=== PATIENT | female | born 1945 | race American Indian/Alaskan Native ===

== ENCOUNTER → 2018-04-26 11:09 | Outpatient (CLI) | payer MEDICARE, MEDICAID, OTHER, SELFPAY ==
[2018-04-26 11:58] LABS: Alanine Aminotransferase 16 IU/L (9-52); Albumin Globulin Ratio 1.3 (1.0-2.8); Alkaline Phosphatase 56 U/L (38-126); Aspartate Aminotransferase 22 IU/L (14-36); BUN Creatinine Ratio 12.5 (6-22); Bilirubin Total 0.6 mg/dL (0.2-1.3); Blood Urea Nitrogen 10 mg/dL (7-17); Calcium 8.9 mg/dL (8.4-10.2); Carbon Dioxide 31 mmol/L (22-32); Chloride 101 mmol/L (98-107); Cholesterol 144 mg/dL (140-199); Estimated Glomerular Filt Rate > 60.0 mL/min (>60); Globulin 3.2 g/dL (1.7-4.1); Glucose 93 mg/dL (80-110); HDL Cholesterol 52 mg/dL (40-60); HEMOLYSIS < 15 (0-50); LDL Cholesterol Calculated 60 mg/dL (<100); Potassium 4.4 mmol/L (3.4-5.1); Sodium 138 mmol/L (137-145); Total Protein 7.2 g/dL (6.3-8.2); Triglycerides 162 mg/dL (35-150)
== END ==
PROVIDERS: Visit Provider Internal Medicine
DX: E78.00 Pure hypercholesterolemia, unspecified (principal); F33.9 Major depressive disorder, recurrent, unspecified
CPT/HCPCS: 36415; 80053; 80061

== ENCOUNTER 2018-05-14 11:28 | Emergency (ER) | payer MEDICARE, MEDICAID, OTHER, SELFPAY ==
--- NOTE | 2018-05-14 11:30 | ED_ITS ---
HPI - SOB/Dyspnea General Chief Complaint: Fall Stated Complaint: back pain, pain with inhalation Time Seen by Provider: 05/14/18 11:30 Source: patient Mode of arrival: ambulatory Limitations: no limitations History of Present Illness 73-year-old female here for evaluation of right sided back rib pain. She states that it started after she tripped over a baby gate in her house landing on her right side. She states she has had pain since then. She states she sees been taking her Percocet at home which has not been helping. Does have pain with palpation and deep inspiration. Related Data Home Medications Medication Instructions Recorded Confirmed acetaminophen [Tylenol Extra PO Q6HP PRN #0 10/24/16 04/12/18 Strength] Previous Rx's Medication Instructions Recorded albuterol sulfate [Ventolin HFA] 0 INH SEE INSTRUCTIONS PRN #1 inh 02/06/17 dicyclomine 20 mg PO QID #120 tab 06/28/17 ondansetron HCl [Zofran] 4 mg PO TIDP PRN #20 tab 01/17/18 trazodone 50 mg tablet 50 mg PO BEDTIME PRN #30 tab 03/13/18 montelukast 10 mg tablet 10 mg PO QDAY #30 tab 03/20/18 sertraline 50 mg tablet 50 mg PO DAILY #30 tab 04/12/18 metoprolol succinate ER 50 mg 50 mg PO QDAY #30 tab 04/19/18 tablet,extended release 24 hr simvastatin 20 mg tablet 20 mg PO QDAY #30 tab 04/19/18 omeprazole 40 mg capsule,delayed 40 mg PO QDAY #30 cap 04/27/18 release hydrocodone 5 mg-acetaminophen 325 1 tab PO QIDP PRN #112 tab 05/07/18 mg tablet lidocaine 1 patch TOP Q12H PRN #1 each 05/14/18 Allergies Allergy/AdvReac Type Severity Reaction Status Date / Time amoxicillin [AMOXICILLIN] Allergy Mild RASH Verified 05/14/18 11:36 codeine [CODEINE] Allergy Mild HEADACHE Verified 05/14/18 11:36 metronidazole [METRONIDAZOLE] Allergy Mild RASH Verified 05/14/18 11:36 morphine [MORPHINE] Allergy Mild NAUSEA Verified 05/14/18 11:36 Penicillins [PENICILLINS] Allergy Mild NAUSEA Verified 05/14/18 11:36 tetracycline [TETRACYCLINE] Allergy Mild RASH Verified 05/14/18 11:36 Review of Systems Constitutional Denies fatigue, Denies fever(s) and Denies headache(s) ENT Ears, Nose, Mouth, and Throat: Denies vertigo, Denies dizziness and Denies headache(s) Cardiovascular Denies chest pain, Denies irregular heart rhythm, Denies leg edema, Denies palpitations and Denies dyspnea Respiratory Denies cough, Reports pain on inspiration and Denies dyspnea Gastrointestinal Gastrointestinal: Denies abdominal pain, Denies diarrhea, Denies nausea and Denies vomiting Genitourinary Denies dysuria Musculoskeletal Comments: Right sided back rib pain Integumentary/Breasts Comments: Scab over her left knee from the fall Neurologic Denies vertigo, Denies dizziness and Denies headache(s) Endocrine Denies fatigue and Denies palpitations Hematologic/Lymphatic Denies easy bleeding and Denies easy bruising [facility] Medical History History of nuclear stress test (Resolved 2008) Social History Smoking Status: Former smoker Comment: Reviewed patient's past medical surgical family and social history Exam Initial Vital Signs Initial Vital Signs: Vital Signs Temperature 96.4 F L 05/14/18 11:33 Pulse Rate 58 L 05/14/18 11:33 Respiratory Rate 14 05/14/18 11:33 Blood Pressure 156/68 H 05/14/18 11:33 Pulse Oximetry 96 05/14/18 11:33 Const General: cooperative, healthy appearing, comfortable, well developed, well groomed and No acute distress Orientation: alert, awake and oriented x3 HENSD Head: normal to inspection, normocephalic and atraumatic Resp Effort & Inspection: normal respiratory effort Auscultation: clear to auscultation bilaterally Cardio Rate: regular rate Rhythm: regular rhythm Pulses: radial pulses present Back/Spine/Pelvis Other: Patient with pinpoint tenderness to palpation right lower ribs midback. Skin Other: Patient with a scab on the anterior portion of her left knee without surrounding erythema Neuro General: alert, awake and oriented x3 Psych Appearance: grossly normal and well kempt Course Orders Ordered: ED Orders 05/14/18 11:38 XR ribs RT min 3V w CXR1V Stat Vital Signs - 8 hr 05/14/18 11:33 05/14/18 12:37 Temperature 96.4 F L 97.6 F Pulse Rate 58 L 46 L Respiratory Rate 14 16 Blood Pressure 156/68 H Blood Pressure [Left Arm] 138/74 H Pulse Oximetry 96 97 MDM - SOB/Dyspnea Imaging Data Rib x-ray: Radiologist's impression: PROCEDURE: XR RIBS RT MIN 3V W CXR 1V INDICATIONS: Right-sided rib pain after fall TECHNIQUE: 2 views of the right ribs were acquired, along with a single view chest. COMPARISON: [facility], , CHEST 1 VIEW, 10/24/2016, 11:14. FINDINGS: Surgical changes and devices: Cholecystectomy clips are seen. Bones and chest wall: No fractures or dislocations. No suspicious bony lesions. Overlying soft tissues appear unremarkable. Lungs and pleura: No pleural effusions or pneumothorax. Lungs appear clear. Mediastinum: Mediastinal contours appear normal. Age-appropriate bony degenerative changes are seen. Heart size is normal. IMPRESSION: No displaced rib fractures are seen. No pneumothorax. Dictated by: Rickey Layton M.D. on 05/14/2018 at 11:45 Approved by: Rickey Layton M.D. on 05/14/2018 at 11:45 ECG Data Attestation: I personally reviewed and interpreted this ECG as follows: Prior ECG tracings: not available for review Interpretation: Sinus bradycardia Ventricular rate of 45 Normal QRS Normal QTC No ST T wave changes [facility] Narrative Medical decision making narrative: No fracture seen on the x-ray however patient clinically has pinpoint tenderness on the posterior inferior ribs after a fall which clinically could be diagnosed as a rib fracture. She currently does have opioid pain medications at home. We discussed the importance of taking big deep cleansing breath. Will send home with a prescription for lidocaine. She was given return precautions. She expressed understanding and agreement with plan. Discharge Plan Departure Patient Disposition: Home, Self-Care Clinical Impression: Fracture of rib Instructions: Rib Fracture Activity Restrictions/Additional Instructions: Make sure you are taking your pain medication like we discussed. Highly recommend that you occasionally take a big deep breath and also cough to make sure you are clearing out your lungs. Use the lidocaine patches as directed. Return to the emergency department for any new symptoms, problems breathing, fevers, or any other worsening symptoms. Prescriptions: New lidocaine 4 % adhesive patch,medicated 1 patch TOP Q12H PRN (Reason: pain) Qty: 1 RF: 0 No Action acetaminophen [Tylenol Extra Strength] 500 mg Tablet PO Q6HP PRNQty: 0 RF: 0 albuterol sulfate [Ventolin HFA] 90 MCG/PUFF HFA aerosol inhaler INH SEE INSTRUCTIONS PRNQty: 1 RF: 11 dicyclomine 20 MG tablet 20 mg PO QID Qty: 120 RF: 11 ondansetron HCl [Zofran] 4 MG tablet 4 mg PO TIDP PRNQty: 20 RF: 1 montelukast [Singulair] 10 mg tablet 10 mg PO QDAY Qty: 30 RF: 5 metoprolol succinate [Toprol XL] 50 mg tablet extended release 24 hr 50 mg PO QDAY Qty: 30 RF: 11 simvastatin 20 mg tablet 20 mg PO QDAY Qty: 30 RF: 11 omeprazole 40 mg capsule,delayed release(DR/EC) 40 mg PO QDAY Qty: 30 RF: 6 sertraline 50 mg tablet 50 mg PO DAILY Qty: 30 RF: 1 hydrocodone-acetaminophen [[place]] 5-325 mg tablet 1 tab PO QIDP PRN (Reason: pain) Qty: 112 RF: 0 trazodone 50 mg tablet 50 mg PO BEDTIME PRN (Reason: insomnia) Qty: 30 RF: 0
[2018-05-14 11:33] VITALS: BP 156/68; PULSE 58; RESP 14; TEMP 35.8; O2SAT 96; BMI 29.2
--- NOTE | 2018-05-14 11:38 | DI.RAD.S_ITS ---
PROCEDURE: XR RIBS RT MIN 3V W CXR 1V INDICATIONS: Right-sided rib pain after fall TECHNIQUE: 2 views of the right ribs were acquired, along with a single view chest. COMPARISON: [facility], , CHEST 1 VIEW, 10/24/2016, 11:14. FINDINGS: Surgical changes and devices: Cholecystectomy clips are seen. Bones and chest wall: No fractures or dislocations. No suspicious bony lesions. Overlying soft tissues appear unremarkable. Lungs and pleura: No pleural effusions or pneumothorax. Lungs appear clear. Mediastinum: Mediastinal contours appear normal. Age-appropriate bony degenerative changes are seen. Heart size is normal. IMPRESSION: No displaced rib fractures are seen. No pneumothorax. Dictated by: Rickey Layton M.D. on 05/14/2018 at 11:45 Approved by: Rickey Layton M.D. on 05/14/2018 at 11:45
[2018-05-14 12:37] VITALS: BP 138/74; PULSE 46; RESP 16; TEMP 36.4; O2SAT 97
== END 2018-05-14 13:20 | disposition home or self-care (01) ==
PROVIDERS: Emergency Provider Emergency Medicine; Family Provider Family Medicine; PCP Family Medicine
DX: S22.39XA Fracture of one rib, unspecified side, initial encounter for closed fracture (principal); W01.0XXA Fall on same level from slipping, tripping and stumbling without subsequent striking against object, initial encounter; R07.1 Chest pain on breathing
CPT/HCPCS: 71101; 93005; 93010; 99282; 99284

== ENCOUNTER → 2018-11-29 12:26 | Outpatient (CLI) | payer MEDICARE, MEDICAID, OTHER, SELFPAY ==
--- NOTE | 2018-11-29 | DI.RAD.S_ITS ---
PROCEDURE: XR CHEST 2V INDICATIONS: RIB PAIN TECHNIQUE: 2 views of the chest were acquired. COMPARISON: [facility], , CHEST 1 VIEW, 10/24/2016, 11:14. FINDINGS: Surgical changes and devices: None. Lungs and pleura: Lungs are clear. No pleural effusions or pneumothorax. Mediastinum: Mediastinal contours are normal. Heart size is normal. Bones and chest wall: Probable nondisplaced left sixth rib fracture. Soft tissues appear unremarkable. IMPRESSION: 1. Probable nondisplaced left sixth rib fracture. 2. No acute cardiopulmonary disease. Dictated by: Sandeep King M.D. on 11/29/2018 at 14:37 Approved by: Sandeep King M.D. on 11/29/2018 at 14:40
== END ==
PROVIDERS: PCP Physician Assistant; Visit Provider Physician Assistant
DX: R07.82 Intercostal pain (principal)
CPT/HCPCS: 71046

== ENCOUNTER 2022-12-05 22:28 | Emergency (ER) | payer OTHER, MEDICAID, SELFPAY ==
--- NOTE | 2022-12-05 22:45 | DI.RAD.S_ITS ---
PROCEDURE: XR CHEST 2V INDICATIONS: cough TECHNIQUE: 2 views of the chest were acquired. COMPARISON: [facility], [place], XR CHEST 2V, 11/29/2018, 0:00. [facility], [place], CHEST 1 VIEW, 10/24/2016, 11:14. FINDINGS: Surgical changes and devices: None. Lungs and pleura: Lungs are clear. No pleural effusions or pneumothorax. Mediastinum: Mediastinal contours are normal. Heart size is normal. Bones and chest wall: No suspicious bony abnormalities. Soft tissues appear unremarkable. IMPRESSION: Normal for age, source of current cough symptoms is not seen. Dictated by: Noé Flores M.D. on 12/05/2022 at 23:46 Approved by: Noé Flores M.D. on 12/05/2022 at 23:47
[2022-12-05 22:47] VITALS: BP 140/69; PULSE 60; RESP 17; TEMP 36.6; O2SAT 99; BMI 28.6
--- NOTE | 2022-12-05 22:49 | PC.NURSE ---
Pt had 1000 mg of tylenol at 1930.
--- NOTE | 2022-12-05 22:59 | ED.URI ---
HPI - URI/Sore Throat General Chief Complaint: Upper Respiratory Symptoms Stated Complaint: weak/bp high Time Seen by Provider: 12/05/22 22:53 Source: patient and family Mode of arrival: Ambulatory History of Present Illness HPI Narrative: Patient is partially COVID vaccinated. Has history of pneumonia and bronchitis in the past. No prior history of asthma or COPD. Does smoke marijuana nearly daily. Does have positive sick contacts, grandson has been having same symptoms as well as great granddaughter. Patient has had cough cold congestion fever chills productive green cough for the past 6 days. Blood pressure at home 160/80. Has improved 140/69. Does take blood pressure medication. No heart attack strokes or diabetes. Patient in no distress. Speaking full sentences. No chest pain. Patient been on losartan for many years, only takes once a day in the morning. Patient does smoke marijuana nearly daily Related Data Home Medications Medication Instructions Recorded Confirmed baclofen 10 mg tablet 10 mg PO DAILY 12/05/22 12/05/22 duloxetine 20 mg capsule,delayed 40 mg PO BID 12/05/22 12/05/22 release losartan 50 mg tablet 50 mg PO DAILY 12/05/22 12/05/22 metoclopramide HCl 10 mg tablet 10 mg PO DAILY 12/05/22 12/05/22 Previous Rx's Medication Instructions Recorded dicyclomine 20 mg tablet 20 mg PO QID #120 tabs 06/28/17 Allergies Allergy/AdvReac Type Severity Reaction Status Date / Time amoxicillin [AMOXICILLIN] Allergy Mild RASH Verified 12/05/22 22:50 codeine [CODEINE] Allergy Mild HEADACHE Verified 12/05/22 22:50 metronidazole [METRONIDAZOLE] Allergy Mild RASH Verified 12/05/22 22:50 morphine [MORPHINE] Allergy Mild NAUSEA Verified 12/05/22 22:50 Penicillins [PENICILLINS] Allergy Mild NAUSEA Verified 12/05/22 22:50 tetracycline [TETRACYCLINE] Allergy Mild RASH Verified 12/05/22 22:50 Review of Systems Review of Systems Narrative: GENERAL: Positive chills, fatigue, malaise, fever, negative sweats. HEENT: negative sinus pain, ear pain, sore throat RESPIRATORY: negative dyspnea, positive cough CARDIOVASCULAR: negative chest pain, palpitations GASTROINTESTINAL: negative nausea, vomiting, abdominal pain : negative dysuria, frequency, hematuria MUSCULOSKELETAL: negative muscle or bony pain SKIN: negative rash, skin lesions NEUROLOGIC: negative weakness, numbness ROS Unobtainable: All systems reviewed & are unremarkable except as noted in HPI and below Patient History Medical History (Updated 12/06/22 @ 01:23 by Chapo Shipley MD) History of nuclear stress test (2008) Social History Smoking Status: Former smoker Smoking Status: Former smoker alcohol intake frequency: other Substance Use Type: marijuana Exam Narrative Exam Narrative: GENERAL: in no distress, not toxic not dyspneic HEAD: Normocephalic. EYES: Pupils equal round ENT: Mucous membranes moist. NECK: Trachea midline. CARDIOVASCULAR: Regular rate and rhythm without murmurs RESPIRATORY: Clear to auscultation. Breath sounds equal bilaterally. No wheezes, rales, or rhonchi. Speaking full sentences GASTROINTESTINAL: Abdomen soft, non-tender EXTREMITIES: No gross deformities. BACK: No flank tenderness. NEURO: AOx4. SKIN: Warm and dry PSYCH: Not anxious, is cooperative Initial Vital Signs Initial Vital Signs: Vital Signs Temperature 98 F 12/05/22 22:47 Pulse Rate 60 12/05/22 22:47 Respiratory Rate 17 12/05/22 22:47 Blood Pressure 140/69 12/05/22 22:47 Pulse Oximetry 99 12/05/22 22:47 Oxygen Delivery Method 12/05/22 22:47 Course Orders Ordered: ED Orders 12/05/22 22:45 Chest [XR chest 2V] Stat 12/05/22 22:46 EKG-12 Lead Stat 12/05/22 23:00 Covid-19 + FLU A/B + RSV - PCR Stat 12/05/22 23:10 BNP [NT-proBNP (BNP-Adult 18+)] Stat CBC Auto Diff [Complete Blood Count AUTO DIFF] Stat CMP [Comprehensive Metabolic Panel] Stat Lactate (Lactic Acid) Stat Procalcitonin Stat Prothrombin Time INR Stat Troponin & CK Cardiac Panel Stat Discontinued Medications Losartan Potassium (Losartan 50 Mg Tablet) 50 mg PO NOW ONE Stop: 12/06/22 01:08 Last Admin: 12/06/22 01:23 Dose: 50 mg Documented By: AP Vital Signs Vital signs: Vital Signs - 8 hr 12/05/22 22:47 12/05/22 23:25 12/05/22 23:30 Temperature 98 F Pulse Rate 60 58 L 59 L Respiratory Rate 17 24 Blood Pressure 140/69 Pulse Oximetry 99 97 97 Oxygen Delivery Method Room Air 12/05/22 23:36 12/05/22 23:36 12/06/22 00:00 Temperature Pulse Rate 59 L 60 Respiratory Rate 23 21 Blood Pressure 186/77 H Pulse Oximetry 96 97 Oxygen Delivery Method 12/06/22 00:30 12/06/22 01:00 12/06/22 01:09 Temperature Pulse Rate 64 63 62 Respiratory Rate 22 23 23 Blood Pressure Pulse Oximetry 97 99 97 Oxygen Delivery Method 12/06/22 01:09 12/06/22 01:30 12/06/22 01:30 Temperature Pulse Rate 61 Respiratory Rate 22 Blood Pressure 172/74 H 157/74 H Pulse Oximetry 97 Oxygen Delivery Method 12/06/22 02:00 12/06/22 02:01 12/06/22 02:01 Temperature Pulse Rate 62 63 Respiratory Rate 22 22 Blood Pressure 158/69 H Pulse Oximetry 96 97 Oxygen Delivery Method MDM - URI/Sore Throat Lab Data 12/05/22 23:10 12/05/22 23:10 Labs: Lab Results 12/05/22 12/05/22 12/05/22 Range/Units 23:00 23:10 23:10 WBC 6.9 (4.5-11.0) X10^3/uL RBC 4.26 (4.0-5.2) X10^6/uL Hgb 12.7 (12.0-16.0) g/dL Hct 37.2 (36-46) % MCV 87.4 (80-100) fL MCH 29.8 (26-34) PG MCHC 34.0 (30-36) % RDW 13.8 (11.6-14.8) % Plt Count 383 (150-400) X10^3/uL Neut % (Auto) 51.4 (50-75) % Lymph % (Auto) 38.1 (25-40) % [place] % (Auto) 8.9 (3-14) % Eos % (Auto) 1.0 L (2-4) % Baso % (Auto) 0.6 (0-2) % Neut # (Auto) 3600 (2540-8544) /uL Lymph # (Auto) 2600 (9263-2051) /uL [place] # (Auto) 600 (0-900) /uL Eos # (Auto) 100 (0-450) /uL Baso # (Auto) 0 (0-100) /uL PT (10.1-12.7) SECONDS INR (0.9-1.3) Sodium 133 L (137-145) mmol/L Potassium 3.7 (3.4-5.1) mmol/L Chloride 102 (98-107) mmol/L Carbon Dioxide 23 (22-32) mmol/L BUN 14 (7-17) mg/dL Creatinine 1.03 (0.52-1.04) mg/dL Estimated GFR 57 L (>60) mL/min BUN/Creatinine Ratio 13.6 (6-22) Glucose 95 (80-110) mg/dL Lactate (0.7-2.1) mmol/L Calcium 8.5 (8.4-10.2) mg/dL Total Bilirubin 0.4 (0.2-1.3) mg/dL AST 18 (14-36) IU/L ALT 14 (<35) IU/L Alkaline Phosphatase 66 (38-126) U/L Total Creatine Kinase 62 (30-135) U/L CK-MB (CK-2) TNP CK-MB (CK-2) Rel Index TNP Troponin I 0.019 (0.01-0.034) ng/mL NT-Pro-B Natriuret Pep 309 (<450) pg/mL Total Protein 7.0 (6.3-8.2) g/dL Albumin 4.0 (3.5-5.0) g/dL Globulin 3.0 (1.7-4.1) g/dL Albumin/Globulin Ratio 1.3 (1.0-2.8) Procalcitonin 0.04 (<0.5) ng/mL SARS-CoV-2 (PCR) Negative (Negative) Influenza A (RT-PCR) Flu a negative (NEGATIVE) Influenza B (RT-PCR) Flu b negative (NEGATIVE) RSV (PCR) Negative (Negative) 12/05/22 12/05/22 Range/Units 23:10 23:10 WBC (4.5-11.0) X10^3/uL RBC (4.0-5.2) X10^6/uL Hgb (12.0-16.0) g/dL Hct (36-46) % MCV (80-100) fL MCH (26-34) PG MCHC (30-36) % RDW (11.6-14.8) % Plt Count (150-400) X10^3/uL Neut % (Auto) (50-75) % Lymph % (Auto) (25-40) % [place] % (Auto) (3-14) % Eos % (Auto) (2-4) % Baso % (Auto) (0-2) % Neut # (Auto) (8700-7341) /uL Lymph # (Auto) (1656-8134) /uL [place] # (Auto) (0-900) /uL Eos # (Auto) (0-450) /uL Baso # (Auto) (0-100) /uL PT 12.3 (10.1-12.7) SECONDS INR 1.1 (0.9-1.3) Sodium (137-145) mmol/L Potassium (3.4-5.1) mmol/L Chloride (98-107) mmol/L Carbon Dioxide (22-32) mmol/L BUN (7-17) mg/dL Creatinine (0.52-1.04) mg/dL Estimated GFR (>60) mL/min BUN/Creatinine Ratio (6-22) Glucose (80-110) mg/dL Lactate 0.7 (0.7-2.1) mmol/L Calcium (8.4-10.2) mg/dL Total Bilirubin (0.2-1.3) mg/dL AST (14-36) IU/L ALT (<35) IU/L Alkaline Phosphatase (38-126) U/L Total Creatine Kinase (30-135) U/L CK-MB (CK-2) CK-MB (CK-2) Rel Index Troponin I (0.01-0.034) ng/mL NT-Pro-B Natriuret Pep (<450) pg/mL Total Protein (6.3-8.2) g/dL Albumin (3.5-5.0) g/dL Globulin (1.7-4.1) g/dL Albumin/Globulin Ratio (1.0-2.8) Procalcitonin (<0.5) ng/mL SARS-CoV-2 (PCR) (Negative) Influenza A (RT-PCR) (NEGATIVE) Influenza B (RT-PCR) (NEGATIVE) RSV (PCR) (Negative) [facility] Narrative Medical decision making narrative: Patient is partially COVID vaccinated. Has history of pneumonia and bronchitis in the past. No prior history of asthma or COPD. Does smoke marijuana nearly daily. Does have positive sick contacts, grandson has been having same symptoms as well as great granddaughter. Patient has had cough cold congestion fever chills productive green cough for the past 6 days. Blood pressure at home 160/80. Has improved 140/69. Does take blood pressure medication. No heart attack strokes or diabetes. Patient in no distress. Speaking full sentences. No chest pain. Patient been on losartan for many years, only takes once a day in the morning. Patient does smoke marijuana nearly daily After history and exam CBC CMP EKG procalcitonin lactic acid troponin BNP chest x-ray viral swab ordered [facility] CC: Cough cold congestion fever chills Complicating co-morbidities: Positive sick contacts Data collected from: Patient and grandson and family Medical records reviewed: No previous visits here for URI Differential considered: Includes but not limited to pneumonia bronchitis asthma exacerbation hypertension Exam documented above, pertinent findings include: Clear lung sounds speaking full sentences Lab Test results independently reviewed as above. Pertinent findings: WBC 6.9 sodium 133, viral swab negative Independently reviewed EKG as above sinus rhythm rate [address] elevation or depression Imaging studies independently reviewed: Chest x-ray no acute process Treatments: Losartan 50 mg Re-evaluations: 2:21 a.m.. Blood pressure has improved 164/74. Blood pressure at 2247 140/69. Blood pressure at 201 am 158/69. Patient resting comfortably. No dyspnea no coughing feeling much better. Reviewed results with her. She does understand to take losartan twice a day. Follow up with primary care this week for re-evaluation of blood pressure. Understands no antibiotics for bronchitis. Encouraged her to stop smoking marijuana. Discussion: Appropriate for discharge home. Exam and laboratory studies and imaging and EKG are reassuring. Patient has been on losartan once in the morning for many years. Has not had any changes in her medication for blood pressure. Denies any chest pain. No dyspnea. Return precautions reviewed with her. At this time no antibiotics indicated. Clinically is bronchitis. Blood pressure medication given here and with improvement. Patient will likely need her blood pressure medication twice a day. Diagnosis: Bronchitis/high blood pressure Discharge Plan Departure Patient Disposition: Home Clinical Impression: Bronchitis, Hypertension Instructions: DI for High Blood Pressure, DI for Acute Bronchitis Activity Restrictions/Additional Instructions: Please take your blood pressure medication once in the morning and once at night. Please call family doctor today for office re-evaluation this week for your blood pressure. Please do not smoke. This can cause bronchitis. At this time no antibiotics indicated. Return if worse if any questions or concerns or any trouble breathing. Prescriptions: No Action dicyclomine 20 MG tablet 20 mg PO QID Qty: 120 11RF losartan 50 mg tablet 50 mg PO DAILY baclofen 10 mg tablet 10 mg PO DAILY metoclopramide HCl 10 mg tablet 10 mg PO DAILY duloxetine 20 mg capsule,delayed release(DR/EC) 40 mg PO BID Referrals: Michelle Hooker PA-C [Primary Care Provider] - Stand Alone Forms: Patient Portal/API
[2022-12-05 23:20] LABS: Add Manual Diff / Slide Review NO; Basophils Absolute Auto 0 /uL (0-100); Basophils Percent Auto 0.6 % (0-2); Eosinophils Absolute Auto 100 /uL (0-450); Hematocrit 37.2 % (36-46); Hemoglobin 12.7 g/dL (12.0-16.0); Lymphocytes Absolute Auto 2600 /uL (1100-4500); Lymphocytes Percent Auto 38.1 % (25-40); Mean Corpuscular Hemoglobin 29.8 PG (26-34); Mean Corpuscular Volume 87.4 fL (80-100); Monocytes Absolute Auto 600 /uL (0-900); Monocytes Percent Auto 8.9 % (3-14); Neutrophils Absolute Auto 3600 /uL (1500-7000); Neutrophils Percent Auto 51.4 % (50-75); Platelet Count 383 X10^3/uL (150-400); Red Blood Cell Count 4.26 X10^6/uL (4.0-5.2); Red Cell Distribution Width 13.8 % (11.6-14.8); White Blood Cell Count 6.9 X10^3/uL (4.5-11.0)
[2022-12-05 23:25] VITALS: PULSE 58; O2SAT 97
[2022-12-05 23:27] LABS: INR 1.1 (0.9-1.3); Prothrombin Time 12.3 SECONDS (10.1-12.7)
[2022-12-05 23:30] VITALS: PULSE 59; RESP 24; O2SAT 97
[2022-12-05 23:33] LABS: Lactate (Lactic Acid) 0.7 mmol/L (0.7-2.1)
[2022-12-05 23:34] LABS: Alanine Aminotransferase 14 IU/L (<35); Albumin Globulin Ratio 1.3 (1.0-2.8); Alkaline Phosphatase 66 U/L (38-126); Aspartate Aminotransferase 18 IU/L (14-36); BUN Creatinine Ratio 13.6 (6-22); Bilirubin Total 0.4 mg/dL (0.2-1.3); Blood Urea Nitrogen 14 mg/dL (7-17); Calcium 8.5 mg/dL (8.4-10.2); Carbon Dioxide 23 mmol/L (22-32); Chloride 102 mmol/L (98-107); Creatine Kinase 62 U/L (30-135); Estimated Glomerular Filt Rate 57 mL/min (>60); Glucose 95 mg/dL (80-110); HEMOLYSIS < 15 (0-50); Potassium 3.7 mmol/L (3.4-5.1); Sodium 133 mmol/L (137-145)
[2022-12-05 23:36] VITALS: BP 186/77; PULSE 59; RESP 23; O2SAT 96
[2022-12-05 23:41] LABS: Influenza A - CEPHEID Flu A NEGATIVE (NEGATIVE); Influenza B - CEPHEID Flu B NEGATIVE (NEGATIVE); Respiratory Syncytial Virus Negative (Negative)
[2022-12-05 23:44] LABS: COVID-19 CEPHEID 4-PLEX PCR Negative (Negative)
[2022-12-05 23:46] LABS: NT-proBNP (BNP-Adult 18+) 309 pg/mL (<450); Troponin I 0.019 ng/mL (0.01-0.034)
[2022-12-05 23:50] LABS: Procalcitonin 0.04 ng/mL (<0.5)
[2022-12-06] VITALS (7 sets, daily range): BP systolic 157–172; BP diastolic 69–74; PULSE 60–64; RESP 21–23; O2SAT 96–99
[2022-12-06] MEDS: LOSARTAN 50 MG TABLET PO (01:23)
== END 2022-12-06 02:31 | disposition home or self-care (01) ==
PROVIDERS: Emergency Provider Emergency Medicine; PCP Physician Assistant
DX: J20.9 Acute bronchitis, unspecified (principal); I10 Essential (primary) hypertension; R07.9 Chest pain, unspecified; Z20.822 Contact with and (suspected) exposure to COVID-19
CPT/HCPCS: 0241U; 36415; 71046; 80053; 82550; 83605; 83880; 84145; 84484; 85025; 85610; 93005; 99283; 99284

== ENCOUNTER 2023-09-13 14:01 | Emergency (ER) | payer OTHER, MEDICAID, SELFPAY ==
[2023-09-13 14:14] VITALS: BP 186/79; PULSE 64; RESP 30; TEMP 36.9; O2SAT 99; BMI 27.8
[2023-09-13 14:30] VITALS: BP 167/79; PULSE 77; RESP 27; O2SAT 98
--- NOTE | 2023-09-13 14:30 | DI.RAD.S_ITS ---
PROCEDURE: XR CHEST 1V INDICATIONS: dyspnea TECHNIQUE: One view of the chest was acquired. COMPARISON: [facility], CR, XR CHEST 2V, 12/05/2022, 22:49. FINDINGS: Surgical changes and devices: None. Lungs and pleura: Patchy airspace opacities are present at the bilateral lung bases and appear slightly more confluent on the right than on the left. Mediastinum: Mediastinal contours appear normal. Heart size is normal. Bones and chest wall: No suspicious bony lesions. Overlying soft tissues appear unremarkable. IMPRESSION: Patchy bibasilar airspace opacities suspicious for aspiration/infection. Short interval followup is recommended with resolution of the patient's symptoms to ensure there is no underlying pulmonary pathology. Dictated by: Bailey Forrest M.D. on 09/13/2023 at 16:00 Approved by: Bailey Forrest M.D. on 09/13/2023 at 16:01
--- NOTE | 2023-09-13 14:51 | ED.URI ---
HPI - URI/Sore Throat General Chief Complaint: Upper Respiratory Symptoms Stated Complaint: Weak nausea Time Seen by Provider: 09/13/23 14:05 Source: patient and EMS Mode of arrival: EMS History of Present Illness HPI Narrative: 78-year-old female presents by EMS from home for cough, shortness of breath, body pain. Patient states she has felt poorly for the last 2 days. Patient was placed on 2 L of nasal cannula for comfort. Related Data Home Medications Medication Instructions Recorded Confirmed baclofen 10 mg tablet 10 mg PO DAILY 12/05/22 12/05/22 duloxetine 20 mg capsule,delayed 40 mg PO BID 12/05/22 12/05/22 release losartan 50 mg tablet 50 mg PO DAILY 12/05/22 12/05/22 metoclopramide HCl 10 mg tablet 10 mg PO DAILY 12/05/22 12/05/22 Previous Rx's Medication Instructions Recorded dicyclomine 20 mg tablet 20 mg PO QID #120 tabs 06/28/17 oseltamivir 75 mg capsule (Tamiflu) 75 mg PO Q12H 5 days #10 caps 09/13/23 Allergies Allergy/AdvReac Type Severity Reaction Status Date / Time amoxicillin [AMOXICILLIN] Allergy Mild RASH Verified 12/05/22 22:50 codeine [CODEINE] Allergy Mild HEADACHE Verified 12/05/22 22:50 metronidazole [METRONIDAZOLE] Allergy Mild RASH Verified 12/05/22 22:50 morphine [MORPHINE] Allergy Mild NAUSEA Verified 12/05/22 22:50 Penicillins [PENICILLINS] Allergy Mild NAUSEA Verified 12/05/22 22:50 tetracycline [TETRACYCLINE] Allergy Mild RASH Verified 12/05/22 22:50 Review of Systems Review of Systems Narrative: Negative except as noted above Patient History Medical History (Updated 09/13/23 @ 16:52 by Melinda Ochoa MD) History of nuclear stress test (2008) Social History Smoking Status: Former smoker Smoking Status: Former smoker alcohol intake frequency: other Substance Use Type: marijuana Exam Initial Vital Signs Initial Vital Signs: Vital Signs Temperature 98.4 F 09/13/23 14:14 Pulse Rate 64 09/13/23 14:14 Respiratory Rate 30 H 09/13/23 14:14 Blood Pressure 186/79 H 09/13/23 14:14 Pulse Oximetry 99 09/13/23 14:14 Oxygen Delivery Method Nasal Cannula 09/13/23 14:14 Oxygen Flow Rate 1.5 09/13/23 14:14 Const: Awake, alert, ill-appearing, nontoxic Eyes: PERRL, EOMI, conjunctiva normal ENT: Atraumatic, dentition normal, mucous membranes moist Cardiac: regular rate, regular rhythm RESP: unlabored, clear bilaterally, no wheezing GI: Atraumatic, soft, nontender, nondistended, no rebound, no guarding MSK: Atraumatic, full range of motion, pulses equal Skin: Warm, Dry, intact, no rashes Neuro: AO x3, CN II-XII grossly intact, moves all extremities Psych: affect normal, mood normal, not suicidal, not homicidal Course Course Course Narrative: Nontoxic appearing patient presenting for body aches, cough, shortness of breath for the last several days. Patient is on 2 L nasal cannula, however this is for comfort, when placed on room air patient's saturations are greater than 95%. Laboratory work and imaging to be obtained. Orders Ordered: Discontinued Medications Sodium Chloride (Normal Saline 0.9%) 1,000 mls @ 1,000 mls/hr IV BOLUS ONE Stop: 09/13/23 16:27 Last Infusion: 09/13/23 16:45 Dose: Infused Documented By: Admin: 09/13/23 15:34 Dose: 1,000 mls/hr Documented By: KATY Ondansetron HCl (Ondansetron 4 Mg/2 Ml Inj) 4 mg IV NOW ONE Stop: 09/13/23 15:28 Last Admin: 09/13/23 15:34 Dose: 4 mg Documented By: KATY Reevaluation(s) Reevaluation #1: Laboratory work is reviewed. Mild elevation of BNP, nonspecific. Chest x-ray shows possible bilateral patchy airspace opacities. Patient has no elevated white blood cell count, negative procalcitonin. She is positive however for influenza A. This is likely viral pneumonia and would not benefit from antibiotics. Patient informed of lab and imaging findings. Tamiflu sent to pharmacy as she is within the window for treatment. Counseled on supportive measures and ED return precautions discussed at bedside. Vital Signs Vital signs: Vital Signs - 8 hr 09/13/23 14:14 09/13/23 14:30 09/13/23 15:00 Temperature 98.4 F Pulse Rate 64 77 66 Respiratory Rate 30 H 27 H 25 H Blood Pressure 186/79 H 167/79 H 154/73 H Pulse Oximetry 99 98 99 Oxygen Delivery Method Nasal Cannula Nasal Cannula Nasal Cannula Oxygen Flow Rate 1.5 1.5 1.5 09/13/23 16:11 09/13/23 16:12 Temperature Pulse Rate 79 65 Respiratory Rate 31 H 26 H Blood Pressure 133/82 145/66 H Pulse Oximetry 97 98 Oxygen Delivery Method Nasal Cannula Oxygen Flow Rate 1.5 0.5 MDM - URI/Sore Throat Lab Data 09/13/23 15:06 09/13/23 15:06 Labs: Lab Results 09/13/23 09/13/23 Range/Units 14:58 15:06 WBC 7.3 (4.5-11.0) X10^3/uL RBC 4.40 (4.0-5.2) X10^6/uL Hgb 13.3 (12.0-16.0) g/dL Hct 38.7 (36-46) % MCV 88.0 (80-100) fL MCH 30.3 (26-34) PG MCHC 34.5 (30-36) % RDW 14.3 (11.6-14.8) % Plt Count 306 (150-400) X10^3/uL Neut % (Auto) 78.8 H (50-75) % Lymph % (Auto) 11.5 L (25-40) % Reagan % (Auto) 9.1 (3-14) % Eos % (Auto) 0.1 L (2-4) % Baso % (Auto) 0.5 (0-2) % Neut # (Auto) 5800 (6139-3367) /uL Lymph # (Auto) 800 L (3151-7361) /uL Reagan # (Auto) 700 (0-900) /uL Eos # (Auto) 0 (0-450) /uL Baso # (Auto) 0 (0-100) /uL Sodium 130 L (137-145) mmol/L Potassium 3.8 (3.4-5.1) mmol/L Chloride 100 (98-107) mmol/L Carbon Dioxide 22 (22-32) mmol/L BUN 11 (7-17) mg/dL Creatinine 0.81 (0.52-1.04) mg/dL Estimated GFR > 60 (>60) mL/min BUN/Creatinine Ratio 13.6 (6-22) Glucose 116 H (80-110) mg/dL Calcium 8.7 (8.4-10.2) mg/dL Total Bilirubin 0.7 (0.2-1.3) mg/dL AST 26 (14-36) IU/L ALT 14 (<35) IU/L Alkaline Phosphatase 66 (38-126) U/L Total Creatine Kinase 156 H (30-135) U/L Troponin I < 0.012 (0.01-0.034) ng/mL NT-Pro-B Natriuret Pep 1250 H (<450) pg/mL Total Protein 6.8 (6.3-8.2) g/dL Albumin 3.8 (3.5-5.0) g/dL Globulin 3.0 (1.7-4.1) g/dL Albumin/Globulin Ratio 1.3 (1.0-2.8) Lipase 186 (23-300) U/L Procalcitonin 0.06 (<0.5) ng/mL SARS-CoV-2 (PCR) Negative (Negative) Influenza A (RT-PCR) Flu a positive H (NEGATIVE) Influenza B (RT-PCR) Flu b negative (NEGATIVE) RSV (PCR) Negative (Negative) Discharge Plan Departure Patient Disposition: Home Clinical Impression: Influenza, Cough, Other viral pneumonia Instructions: DI for Influenza -- Adult Prescriptions: New oseltamivir [Tamiflu] 75 mg capsule 75 mg PO Q12H 5 Days Qty: 10 0RF No Action dicyclomine 20 MG tablet 20 mg PO QID Qty: 120 11RF losartan 50 mg tablet 50 mg PO DAILY baclofen 10 mg tablet 10 mg PO DAILY metoclopramide HCl 10 mg tablet 10 mg PO DAILY duloxetine 20 mg capsule,delayed release(DR/EC) 40 mg PO BID Referrals: Michelle Hooker PA-C [Primary Care Provider] - Stand Alone Forms: Patient Portal/API
[2023-09-13 15:00] VITALS: BP 154/73; PULSE 66; RESP 25; O2SAT 99
[2023-09-13 15:12] LABS: Add Manual Diff / Slide Review NO; Basophils Absolute Auto 0 /uL (0-100); Basophils Percent Auto 0.5 % (0-2); Eosinophils Absolute Auto 0 /uL (0-450); Eosinophils Percent Auto 0.1 % (2-4); Hematocrit 38.7 % (36-46); Hemoglobin 13.3 g/dL (12.0-16.0); Lymphocytes Absolute Auto 800 /uL (1100-4500); Lymphocytes Percent Auto 11.5 % (25-40); Mean Corpuscular HGB Conc 34.5 % (30-36); Mean Corpuscular Hemoglobin 30.3 PG (26-34); Monocytes Absolute Auto 700 /uL (0-900); Monocytes Percent Auto 9.1 % (3-14); Neutrophils Absolute Auto 5800 /uL (1500-7000); Neutrophils Percent Auto 78.8 % (50-75); Platelet Count 306 X10^3/uL (150-400); Red Cell Distribution Width 14.3 % (11.6-14.8); White Blood Cell Count 7.3 X10^3/uL (4.5-11.0)
[2023-09-13] MEDS: SODIUM CHLORIDE 0.9% 1,000 ML 1000 ML IV (15:34)
[2023-09-13] MEDS: ONDANSETRON 4 MG/2 ML INJ IV (15:34)
[2023-09-13 15:36] LABS: Alanine Aminotransferase 14 IU/L (<35); Albumin 3.8 g/dL (3.5-5.0); Albumin Globulin Ratio 1.3 (1.0-2.8); Alkaline Phosphatase 66 U/L (38-126); Aspartate Aminotransferase 26 IU/L (14-36); BUN Creatinine Ratio 13.6 (6-22); Bilirubin Total 0.7 mg/dL (0.2-1.3); Blood Urea Nitrogen 11 mg/dL (7-17); Calcium 8.7 mg/dL (8.4-10.2); Carbon Dioxide 22 mmol/L (22-32); Chloride 100 mmol/L (98-107); Creatine Kinase 156 U/L (30-135); Estimated Glomerular Filt Rate > 60 mL/min (>60); Glucose 116 mg/dL (80-110); HEMOLYSIS < 15 (0-50); Lipase 186 U/L (23-300); Potassium 3.8 mmol/L (3.4-5.1); Sodium 130 mmol/L (137-145); Total Protein 6.8 g/dL (6.3-8.2)
[2023-09-13 15:46] LABS: Influenza A - CEPHEID Flu A POSITIVE (NEGATIVE); Influenza B - CEPHEID Flu B NEGATIVE (NEGATIVE); Respiratory Syncytial Virus Negative (Negative)
[2023-09-13 15:47] LABS: COVID-19 CEPHEID 4-PLEX PCR Negative (Negative)
[2023-09-13 15:48] LABS: NT-proBNP (BNP-Adult 18+) 1250 pg/mL (<450); Troponin I < 0.012 ng/mL (0.01-0.034)
[2023-09-13 16:11] VITALS: BP 133/82; PULSE 79; RESP 31; O2SAT 97
[2023-09-13 16:12] VITALS: BP 145/66; PULSE 65; RESP 26; O2SAT 98
[2023-09-13 16:34] LABS: Procalcitonin 0.06 ng/mL (<0.5)
[2023-09-13 16:57] VITALS: BP 156/69; PULSE 68; RESP 29; O2SAT 98
== END 2023-09-13 17:04 | disposition home or self-care (01) ==
PROVIDERS: Emergency Provider Emergency Medicine; PCP Physician Assistant
DX: J09.X2 Influenza due to identified novel influenza A virus with other respiratory manifestations (principal); J12.89 Other viral pneumonia; R05.9 Cough, unspecified
CPT/HCPCS: 0241U; 36415; 71045; 80053; 82550; 83690; 83880; 84145; 84484; 85025; 96361; 96374; 99284; 99285; J2405

== ENCOUNTER 2025-01-06 13:43 | Observation (INO) | payer MEDICARE, MEDICAID, SELFPAY ==
[2025-01-06] VITALS (28 sets, daily range): BP systolic 102–186; BP diastolic 50–96; PULSE 69–97; RESP 16–39; TEMP 36.7–36.8; O2SAT 97–100; BMI 25.9
--- NOTE | 2025-01-06 13:49 | DI.RAD.S_ITS ---
PROCEDURE: XR CHEST 1V INDICATIONS: Shortness of breath TECHNIQUE: One view of the chest was acquired. COMPARISON: [facility], SARITA, XR CHEST 1V, 09/13/2023, 14:49. [facility], CR, XR CHEST 2V, 12/05/2022, 22:49. FINDINGS: Surgical changes and devices: None. Lungs and pleura: Lungs are clear. No pleural effusions or pneumothorax. Mediastinum: Mediastinal contours appear normal. Heart size is normal. Bones and chest wall: No suspicious bony lesions. Overlying soft tissues appear unremarkable. IMPRESSION: No acute cardiopulmonary abnormality is seen. Dictated by: New Morales M.D. on 01/06/2025 at 14:39 Approved by: New Morales M.D. on 01/06/2025 at 14:39
--- NOTE | 2025-01-06 13:49 | EKG_ITS ---
[facility] [address] [place] [address] Test Date: 2025-01-06 Pat Name: Matilde Thakkar Department: Room: Gender: Female Professor Of Art: MARI : 1945 Requested By: Order Number: [id number] Reading MD: Graham Giraldo MD Measurements Intervals [place] Rate: 77 P: -26 SD: 108 QRS: 12 QRSD: 74 T: 13 QT: 382 QTc: 432 Interpretive Statements Sinus rhythm with marked sinus arrhythmia with short SD ST & T wave abnormality, consider inferior ischemia (baseline artifact may be responsible) Electronically Signed On 01-07-2025 7:43:14 PDT by Graham Giraldo MD
[2025-01-06 14:27] LABS: Add Manual Diff / Slide Review NO; Basophils Absolute Auto 0 /uL (0-100); Basophils Percent Auto 0.2 % (0-2); Eosinophils Absolute Auto 0 /uL (0-450); Eosinophils Percent Auto 0.2 % (2-4); Hematocrit 38.8 % (36-46); Hemoglobin 13.5 g/dL (12.0-16.0); Lymphocytes Absolute Auto 400 /uL (1100-4500); Lymphocytes Percent Auto 5.8 % (25-40); Mean Corpuscular HGB Conc 34.9 % (30-36); Monocytes Absolute Auto 300 /uL (0-900); Neutrophils Absolute Auto 5600 /uL (1500-7000); Neutrophils Percent Auto 88.8 % (50-75); Platelet Count 522 X10^3/uL (150-400); Red Blood Cell Count 4.51 X10^6/uL (4.0-5.2); White Blood Cell Count 6.3 X10^3/uL (4.5-11.0)
[2025-01-06 14:28] LABS: INR 1.1 (0.9-1.3); Prothrombin Time 12.3 SECONDS (9.4-12.5)
[2025-01-06 14:33] LABS: Alanine Aminotransferase 25 IU/L (<35); Albumin 3.8 g/dL (3.5-5.0); Albumin Globulin Ratio 1.1 (1.0-2.8); Alkaline Phosphatase 111 U/L (38-126); Aspartate Aminotransferase 51 IU/L (14-36); BUN Creatinine Ratio 12.3 (6-22); Bilirubin Total 0.9 mg/dL (0.2-1.3); Blood Urea Nitrogen 10 mg/dL (7-17); Calcium 8.2 mg/dL (8.4-10.2); Carbon Dioxide 21 mmol/L (22-32); Chloride 100 mmol/L (98-107); Estimated Glomerular Filt Rate > 60 mL/min (>60); Globulin 3.5 g/dL (1.7-4.1); Glucose 111 mg/dL (80-110); HEMOLYSIS < 15 (0-50); Potassium 2.9 mmol/L (3.4-5.1); Sodium 134 mmol/L (137-145); Total Protein 7.3 g/dL (6.3-8.2)
[2025-01-06 14:34] LABS: Lactate (Lactic Acid) 2.2 mmol/L (0.7-2.1)
[2025-01-06 14:45] LABS: NT-proBNP (BNP-Adult 18+) 1740 pg/mL (<450); Troponin I 0.019 ng/mL (0.01-0.034)
[2025-01-06] MEDS: ONDANSETRON 4 MG/2 ML INJ IV (15:40)
--- NOTE | 2025-01-06 15:44 | PC.NURSE ---
Pt reports feeling nauseated. Dr Arora notified. Verbal order received for Zorfran IV 4 mg.
--- NOTE | 2025-01-06 15:44 | ED.SOB ---
HPI - SOB/Dyspnea <Basia Arora, DO - Last Filed: 01/08/25 23:16> General Chief Complaint: Shortness of Breath/Dyspnea Stated Complaint: Flu PNA having SOB, orthostatic Time Seen by Provider: 01/06/25 15:44 History of Present Illness HPI Narrative: Patient is a 79-year-old female history of hypertension presenting to day with variety of symptoms. She has been to [facility] ED once or twice already this month. She reports that she started having symptoms on was seen there on the . I reviewed her records via [facility] she had a CT angio for pulmonary embolism which did show some mild pneumonia looks like she was put on Bactrim. She continues to have productive sputum granddaughter at bedside reports that she is dry heaving and vomiting minimal abdominal pain. She generally is weak not feeling well. She does have history of asthma but has not picked up her albuterol inhaler. She keeps coughing and spitting up sputum during my questioning. Lots of family at bedside. Related Data Home Medications Medication Instructions Recorded Confirmed baclofen 10 mg tablet 10 mg PO DAILY 12/05/22 01/06/25 duloxetine 20 mg capsule,delayed 40 mg PO BID 12/05/22 01/06/25 release losartan 50 mg tablet 50 mg PO DAILY 12/05/22 01/06/25 amlodipine 2 mg PO DAILY 01/06/25 01/07/25 ondansetron 4 mg disintegrating 2 mg PO Q6-8H PRN Nausea 01/06/25 01/06/25 tablet sulfamethoxazole 800 1 tab PO BID 01/06/25 01/06/25 mg-trimethoprim 160 mg tablet Previous Rx's Medication Instructions Recorded dicyclomine 20 mg tablet 20 mg PO QID #120 tabs 06/28/17 Allergies Allergy/AdvReac Type Severity Reaction Status Date / Time amoxicillin [AMOXICILLIN] Allergy Mild RASH Verified 12/05/22 22:50 metronidazole [METRONIDAZOLE] Allergy Mild RASH Verified 12/05/22 22:50 tetracycline [TETRACYCLINE] Allergy Mild RASH Verified 12/05/22 22:50 codeine [CODEINE] AdvReac Mild HEADACHE Verified 01/07/25 07:49 morphine [MORPHINE] AdvReac Mild NAUSEA Verified 01/07/25 07:49 Penicillins [PENICILLINS] AdvReac Mild NAUSEA Verified 01/07/25 07:49 Patient History <Basia Ulysses DO - Last Filed: 01/08/25 23:16> Medical History Elevated brain natriuretic peptide (BNP) level History of nuclear stress test (2008) Social History household members: family Smoking Status: Current every day smoker alcohol intake: never Smoking Status: Former smoker alcohol intake frequency: other Exam <Basia Arora DO - Last Filed: 01/08/25 23:16> Initial Vital Signs Initial Vital Signs: Vital Signs Pulse Rate 69 01/06/25 13:46 GENERAL: Alert 79-year-old female and in no acute distress. HEENT: Head atraumatic,EOMI, pupils reactive, face symmetric, moist mucous membranes CARDIOVASCULAR: Regular rate and rhythm without murmurs, rubs or gallops. RESPIRATORY: Breath sounds equal bilaterally, no wheezes rales or rhonchi. ABDOMEN: Soft, nontender. Normoactive bowel sounds all 4 quadrants. No guarding or rebound. EXTREMITIES: Normal range of motion, no clubbing or edema. Neurovascularly intact NEUROLOGICAL: Alert and oriented x4.Normal gait and speech. Cranial nerves II through XII grossly intact. Tardive dyskinesia noted with mouth SKIN: Warm, dry, no laceration, no petechiae, no rashes or lesions. <Melinda Hess, DO - Last Filed: 01/07/25 01:36> Initial Vital Signs Initial Vital Signs: Vital Signs Pulse Rate 69 01/06/25 13:46 Course <Basia Ulysses, DO - Last Filed: 01/08/25 23:16> Orders Ordered: Acetaminophen (Acetaminophen 325 Mg Tablet) 650 mg PO Q6H PRN PRN Reason: Fever/Mild Pain (1-3) Last Admin: 01/08/25 21:37 Dose: 650 mg Documented By: Admin: 01/08/25 07:54 Dose: 650 mg Documented By: Admin: 01/07/25 18:50 Dose: 650 mg Documented By: Admin: 01/07/25 08:40 Dose: 650 mg Documented By: BT Baclofen (Baclofen 10 Mg Tablet) 10 mg PO DAILY SETH Last Admin: 01/08/25 08:38 Dose: 10 mg Documented By: Admin: 01/07/25 08:25 Dose: 10 mg Documented By: BT Carvedilol (Carvedilol 3.125 Mg Tablet) 3.125 mg PO BID [facility] Last Admin: 01/08/25 21:35 Dose: 3.125 mg Documented By: Admin: 01/08/25 08:38 Dose: 3.125 mg Documented By: Admin: 01/07/25 20:14 Dose: 3.125 mg Documented By: CS Duloxetine HCl (Duloxetine 20 Mg Capsule) 40 mg PO BID [facility] Last Admin: 01/08/25 21:37 Dose: 40 mg Documented By: Admin: 01/08/25 08:38 Dose: 40 mg Documented By: Admin: 01/07/25 20:14 Dose: 40 mg Documented By: Admin: 01/07/25 08:25 Dose: 40 mg Documented By: BT Enoxaparin Sodium (Enoxaparin 40 Mg/0.4 Ml Syringe) 40 mg SUBCUT DAILY [facility] Last Admin: 01/08/25 08:38 Dose: 40 mg Documented By: Admin: 01/07/25 08:25 Dose: 40 mg Documented By: BT Naloxone HCl (Naloxone 0.4 Mg/Ml Vial) 0.2 mg IV Q2MIN PRN PRN Reason: Opiate Reversal Ondansetron HCl (Ondansetron 4 Mg Odt) 4 mg PO Q8HR PRN PRN Reason: Nausea And Vomiting Ondansetron HCl (Ondansetron 4 Mg/2 Ml Inj) 4 mg IV Q8HR PRN PRN Reason: Nausea And Vomiting Pantoprazole Sodium (Pantoprazole Dr 40 Mg Tablet) 40 mg PO 0600,1800 [facility] Last Admin: 01/08/25 18:32 Dose: 40 mg Documented By: BT Sucralfate (Sucralfate 1 Gm/10 Ml Oral Susp) 1 gm PO ACHS [facility] Last Admin: 01/08/25 21:34 Dose: 1 gm Documented By: Admin: 01/08/25 17:02 Dose: 1 gm Documented By: Admin: 01/08/25 11:44 Dose: 1 gm Documented By: Admin: 01/08/25 07:54 Dose: 1 gm Documented By: Admin: 01/07/25 20:14 Dose: 1 gm Documented By: Admin: 01/07/25 17:01 Dose: 1 gm Documented By: Admin: 01/07/25 12:12 Dose: 1 gm Documented By: Admin: 01/07/25 08:25 Dose: 1 gm Documented By: BT Discontinued Medications Albuterol/Ipratropium (Albuterol/Ipratropium 3 Ml Ampul) 3 ml INH NOW ONE Stop: 01/06/25 16:06 Last Admin: 01/06/25 16:24 Dose: 3 ml Documented By: CHANDRA Sodium Chloride (Normal Saline 0.9%) 1,000 mls @ 1,000 mls/hr IV BOLUS ONE Stop: 01/06/25 17:04 Last Infusion: 01/06/25 18:18 Dose: Infused Documented By: Admin: 01/06/25 16:24 Dose: 1,000 mls/hr Documented By: POTASSIUM CHLORIDE IN WATER (Potassium Cl 10 Meq/[address]) 10 meq in 100 mls @ 100 mls/hr IV Q1H SETH Stop: 01/06/25 18:14 Last Infusion: 01/06/25 18:17 Dose: Infused Documented By: Admin: 01/06/25 17:16 Dose: 100 mls/hr Documented By: Infusion: 01/06/25 17:16 Dose: Infused Documented By: Admin: 01/06/25 16:24 Dose: 100 mls/hr Documented By: Sodium Chloride (Normal Saline 0.9%) 1,000 mls @ 1,000 mls/hr IV BOLUS ONE Stop: 01/06/25 18:07 Last Infusion: 01/06/25 20:35 Dose: Infused Documented By: Admin: 01/06/25 17:15 Dose: 1,000 mls/hr Documented By: Sodium Chloride (Normal Saline 0.9%) 1,000 mls @ 125 mls/hr IV CONT SETH Last Infusion: 01/07/25 01:35 Dose: 0 mls/hr Documented By: Admin: 01/06/25 22:42 Dose: 125 mls/hr Documented By: YSABEL Methylprednisolone (Methylprednisolone 125 Mg/2 Ml Vial) 125 mg IV NOW ONE Stop: 01/06/25 16:06 Last Admin: 01/06/25 16:23 Dose: 125 mg Documented By: Metoclopramide HCl (Metoclopramide 10 Mg/2 Ml Inj) 10 mg IV NOW ONE Stop: 01/06/25 17:09 Last Admin: 01/06/25 17:15 Dose: 10 mg Documented By: Ondansetron HCl (Ondansetron 4 Mg/2 Ml Inj) 4 mg IV NOW ONE Stop: 01/06/25 15:38 Last Admin: 01/06/25 15:40 Dose: 4 mg Documented By: Pantoprazole Sodium (Pantoprazole Dr 40 Mg Tablet) 40 mg PO 0700,2100 [facility] Last Admin: 01/07/25 02:48 Dose: Not Given Documented By: YSABEL Pantoprazole Sodium (Pantoprazole 40 Mg Vial) 40 mg IV 0600,1800 [facility] Last Admin: 01/08/25 05:54 Dose: 40 mg Documented By: Admin: 01/07/25 18:14 Dose: 40 mg Documented By: Admin: 01/07/25 06:07 Dose: 40 mg Documented By: YSABEL Potassium Chloride (Potassium Chloride 20 Meq Tab) 40 meq PO NOW ONE Stop: 01/07/25 07:31 Last Admin: 01/07/25 08:25 Dose: 40 meq Documented By: BT Potassium Chloride (Potassium Chloride 20 Meq Tab) 20 meq PO NOW ONE Stop: 01/08/25 11:16 Last Admin: 01/08/25 11:44 Dose: 20 meq Documented By: BT Vital Signs Vital signs: Vital Signs - 8 hr 01/06/25 18:00 01/06/25 18:00 01/06/25 18:30 Pulse Rate 75 79 Respiratory Rate 28 H 39 H Blood Pressure 160/77 H Pulse Oximetry 100 100 Oxygen Delivery Method 01/06/25 18:31 01/06/25 18:31 01/06/25 19:00 Pulse Rate 80 81 Respiratory Rate 37 H 35 H Blood Pressure 173/74 H Pulse Oximetry 100 100 Oxygen Delivery Method 01/06/25 19:01 01/06/25 19:01 01/06/25 19:30 Pulse Rate 80 80 77 Respiratory Rate 32 H 35 H 34 H Blood Pressure 133/61 Pulse Oximetry 100 98 Oxygen Delivery Method Room Air 01/06/25 19:31 01/06/25 19:31 01/06/25 19:51 Pulse Rate 76 Respiratory Rate 33 H Blood Pressure 151/66 H 156/71 H Pulse Oximetry 99 Oxygen Delivery Method 01/06/25 19:51 01/06/25 20:00 01/06/25 20:00 Pulse Rate 81 81 Respiratory Rate 26 H 36 H Blood Pressure 144/67 H Pulse Oximetry 98 98 Oxygen Delivery Method 01/06/25 20:30 01/06/25 20:30 01/06/25 21:00 Pulse Rate 90 Respiratory Rate 23 Blood Pressure 102/50 L 141/65 H Pulse Oximetry 97 Oxygen Delivery Method Room Air 01/06/25 21:00 Pulse Rate 77 Respiratory Rate Blood Pressure Pulse Oximetry 97 Oxygen Delivery Method <Melinda Hess DO - Last Filed: 01/07/25 01:36> Orders Ordered: Acetaminophen (Acetaminophen 325 Mg Tablet) 650 mg PO Q6H PRN PRN Reason: Fever/Mild Pain (1-3) Last Admin: 01/08/25 21:37 Dose: 650 mg Documented By: Admin: 01/08/25 07:54 Dose: 650 mg Documented By: Admin: 01/07/25 18:50 Dose: 650 mg Documented By: Admin: 01/07/25 08:40 Dose: 650 mg Documented By: BT Baclofen (Baclofen 10 Mg Tablet) 10 mg PO DAILY [facility] Last Admin: 01/08/25 08:38 Dose: 10 mg Documented By: Admin: 01/07/25 08:25 Dose: 10 mg Documented By: BT Carvedilol (Carvedilol 3.125 Mg Tablet) 3.125 mg PO BID [facility] Last Admin: 01/08/25 21:35 Dose: 3.125 mg Documented By: Admin: 01/08/25 08:38 Dose: 3.125 mg Documented By: Admin: 01/07/25 20:14 Dose: 3.125 mg Documented By: TRISTEN Duloxetine HCl (Duloxetine 20 Mg Capsule) 40 mg PO BID [facility] Last Admin: 01/08/25 21:37 Dose: 40 mg Documented By: Admin: 01/08/25 08:38 Dose: 40 mg Documented By: Admin: 01/07/25 20:14 Dose: 40 mg Documented By: Admin: 01/07/25 08:25 Dose: 40 mg Documented By: BT Enoxaparin Sodium (Enoxaparin 40 Mg/0.4 Ml Syringe) 40 mg SUBCUT DAILY [facility] Last Admin: 01/08/25 08:38 Dose: 40 mg Documented By: Admin: 01/07/25 08:25 Dose: 40 mg Documented By: BT Naloxone HCl (Naloxone 0.4 Mg/Ml Vial) 0.2 mg IV Q2MIN PRN PRN Reason: Opiate Reversal Ondansetron HCl (Ondansetron 4 Mg Odt) 4 mg PO Q8HR PRN PRN Reason: Nausea And Vomiting Ondansetron HCl (Ondansetron 4 Mg/2 Ml Inj) 4 mg IV Q8HR PRN PRN Reason: Nausea And Vomiting Pantoprazole Sodium (Pantoprazole Dr 40 Mg Tablet) 40 mg PO 0600,1800 [facility] Last Admin: 01/08/25 18:32 Dose: 40 mg Documented By: BT Sucralfate (Sucralfate 1 Gm/10 Ml Oral Susp) 1 gm PO ACHS [facility] Last Admin: 01/08/25 21:34 Dose: 1 gm Documented By: Admin: 01/08/25 17:02 Dose: 1 gm Documented By: Admin: 01/08/25 11:44 Dose: 1 gm Documented By: Admin: 01/08/25 07:54 Dose: 1 gm Documented By: Admin: 01/07/25 20:14 Dose: 1 gm Documented By: Admin: 01/07/25 17:01 Dose: 1 gm Documented By: Admin: 01/07/25 12:12 Dose: 1 gm Documented By: Admin: 01/07/25 08:25 Dose: 1 gm Documented By: BT Discontinued Medications Albuterol/Ipratropium (Albuterol/Ipratropium 3 Ml Ampul) 3 ml INH NOW ONE Stop: 01/06/25 16:06 Last Admin: 01/06/25 16:24 Dose: 3 ml Documented By: CHANDRA Sodium Chloride (Normal Saline 0.9%) 1,000 mls @ 1,000 mls/hr IV BOLUS ONE Stop: 01/06/25 17:04 Last Infusion: 01/06/25 18:18 Dose: Infused Documented By: Admin: 01/06/25 16:24 Dose: 1,000 mls/hr Documented By: POTASSIUM CHLORIDE IN WATER (Potassium Cl 10 Meq/[address]) 10 meq in 100 mls @ 100 mls/hr IV Q1H SETH Stop: 01/06/25 18:14 Last Infusion: 01/06/25 18:17 Dose: Infused Documented By: Admin: 01/06/25 17:16 Dose: 100 mls/hr Documented By: Infusion: 01/06/25 17:16 Dose: Infused Documented By: Admin: 01/06/25 16:24 Dose: 100 mls/hr Documented By: Sodium Chloride (Normal Saline 0.9%) 1,000 mls @ 1,000 mls/hr IV BOLUS ONE Stop: 01/06/25 18:07 Last Infusion: 01/06/25 20:35 Dose: Infused Documented By: Admin: 01/06/25 17:15 Dose: 1,000 mls/hr Documented By: Sodium Chloride (Normal Saline 0.9%) 1,000 mls @ 125 mls/hr IV CONT [facility] Last Infusion: 01/07/25 01:35 Dose: 0 mls/hr Documented By: Admin: 01/06/25 22:42 Dose: 125 mls/hr Documented By: YSABEL Methylprednisolone (Methylprednisolone 125 Mg/2 Ml Vial) 125 mg IV NOW ONE Stop: 01/06/25 16:06 Last Admin: 01/06/25 16:23 Dose: 125 mg Documented By: Metoclopramide HCl (Metoclopramide 10 Mg/2 Ml Inj) 10 mg IV NOW ONE Stop: 01/06/25 17:09 Last Admin: 01/06/25 17:15 Dose: 10 mg Documented By: Ondansetron HCl (Ondansetron 4 Mg/2 Ml Inj) 4 mg IV NOW ONE Stop: 01/06/25 15:38 Last Admin: 01/06/25 15:40 Dose: 4 mg Documented By: Pantoprazole Sodium (Pantoprazole Dr 40 Mg Tablet) 40 mg PO 0700,2100 [facility] Last Admin: 01/07/25 02:48 Dose: Not Given Documented By: YSABEL Pantoprazole Sodium (Pantoprazole 40 Mg Vial) 40 mg IV 0600,1800 [facility] Last Admin: 01/08/25 05:54 Dose: 40 mg Documented By: Admin: 01/07/25 18:14 Dose: 40 mg Documented By: Admin: 01/07/25 06:07 Dose: 40 mg Documented By: YSABEL Potassium Chloride (Potassium Chloride 20 Meq Tab) 40 meq PO NOW ONE Stop: 01/07/25 07:31 Last Admin: 01/07/25 08:25 Dose: 40 meq Documented By: BT Potassium Chloride (Potassium Chloride 20 Meq Tab) 20 meq PO NOW ONE Stop: 01/08/25 11:16 Last Admin: 01/08/25 11:44 Dose: 20 meq Documented By: BT Vital Signs Vital signs: Vital Signs - 8 hr 01/06/25 18:00 01/06/25 18:00 01/06/25 18:30 Pulse Rate 75 79 Respiratory Rate 28 H 39 H Blood Pressure 160/77 H Pulse Oximetry 100 100 Oxygen Delivery Method 01/06/25 18:31 01/06/25 18:31 01/06/25 19:00 Pulse Rate 80 81 Respiratory Rate 37 H 35 H Blood Pressure 173/74 H Pulse Oximetry 100 100 Oxygen Delivery Method 01/06/25 19:01 01/06/25 19:01 01/06/25 19:30 Pulse Rate 80 80 77 Respiratory Rate 32 H 35 H 34 H Blood Pressure 133/61 Pulse Oximetry 100 98 Oxygen Delivery Method Room Air 01/06/25 19:31 01/06/25 19:31 01/06/25 19:51 Pulse Rate 76 Respiratory Rate 33 H Blood Pressure 151/66 H 156/71 H Pulse Oximetry 99 Oxygen Delivery Method 01/06/25 19:51 01/06/25 20:00 01/06/25 20:00 Pulse Rate 81 81 Respiratory Rate 26 H 36 H Blood Pressure 144/67 H Pulse Oximetry 98 98 Oxygen Delivery Method 01/06/25 20:30 01/06/25 20:30 01/06/25 21:00 Pulse Rate 90 Respiratory Rate 23 Blood Pressure 102/50 L 141/65 H Pulse Oximetry 97 Oxygen Delivery Method Room Air 01/06/25 21:00 Pulse Rate 77 Respiratory Rate Blood Pressure Pulse Oximetry 97 Oxygen Delivery Method MDM - SOB/Dyspnea <Basia Arora DO - Last Filed: 01/08/25 23:16> Lab Data 01/07/25 05:16 01/08/25 05:01 Labs: Lab Results 01/06/25 01/06/25 01/07/25 Range/Units 14:10 16:26 05:16 WBC 6.3 3.1 L D (4.5-11.0) X10^3/uL RBC 4.51 3.72 L (4.0-5.2) X10^6/uL Hgb 13.5 11.4 L (12.0-16.0) g/dL Hct 38.8 32.2 L (36-46) % MCV 86.0 86.5 (80-100) fL MCH 30.0 30.6 (26-34) PG MCHC 34.9 35.4 (30-36) % RDW 14.0 14.3 (11.6-14.8) % Plt Count 522 H 435 H (150-400) X10^3/uL Neut % (Auto) 88.8 H 90.1 H (50-75) % Lymph % (Auto) 5.8 L 7.6 L (25-40) % [place] % (Auto) 5.0 2.1 L (3-14) % Eos % (Auto) 0.2 L 0.0 L (2-4) % Baso % (Auto) 0.2 0.2 (0-2) % Neut # (Auto) 5600 2800 (2091-7787) /uL Lymph # (Auto) 400 L 200 L (8614-0421) /uL [place] # (Auto) 300 100 (0-900) /uL Eos # (Auto) 0 0 (0-450) /uL Baso # (Auto) 0 0 (0-100) /uL PT 12.3 (9.4-12.5) SECONDS INR 1.1 (0.9-1.3) Sodium 134 L 133 L (137-145) mmol/L Potassium 2.9 L 3.4 (3.4-5.1) mmol/L Chloride 100 105 (98-107) mmol/L Carbon Dioxide 21 L 20 L (22-32) mmol/L BUN 10 9 (7-17) mg/dL Creatinine 0.81 0.71 (0.52-1.04) mg/dL Estimated GFR > 60 > 60 (>60) mL/min BUN/Creatinine Ratio 12.3 12.7 (6-22) Glucose 111 H 127 H (80-110) mg/dL Lactate 2.2 H 1.5 (0.7-2.1) mmol/L Calcium 8.2 L 7.0 L (8.4-10.2) mg/dL Total Bilirubin 0.9 (0.2-1.3) mg/dL AST 51 H (14-36) IU/L ALT 25 (<35) IU/L Alkaline Phosphatase 111 (38-126) U/L Troponin I 0.019 (0.01-0.034) ng/mL NT-Pro-B Natriuret Pep 1740 H (<450) pg/mL Total Protein 7.3 (6.3-8.2) g/dL Albumin 3.8 (3.5-5.0) g/dL Globulin 3.5 (1.7-4.1) g/dL Albumin/Globulin Ratio 1.1 (1.0-2.8) 01/08/25 01/08/25 Range/Units 05:01 13:14 WBC (4.5-11.0) X10^3/uL RBC (4.0-5.2) X10^6/uL Hgb (12.0-16.0) g/dL Hct (36-46) % MCV (80-100) fL MCH (26-34) PG MCHC (30-36) % RDW (11.6-14.8) % Plt Count (150-400) X10^3/uL Neut % (Auto) (50-75) % Lymph % (Auto) (25-40) % [place] % (Auto) (3-14) % Eos % (Auto) (2-4) % Baso % (Auto) (0-2) % Neut # (Auto) (4427-9591) /uL Lymph # (Auto) (0263-9607) /uL [place] # (Auto) (0-900) /uL Eos # (Auto) (0-450) /uL Baso # (Auto) (0-100) /uL PT (9.4-12.5) SECONDS INR (0.9-1.3) Sodium 134 L (137-145) mmol/L Potassium 3.5 (3.4-5.1) mmol/L Chloride 107 (98-107) mmol/L Carbon Dioxide 22 (22-32) mmol/L BUN 9 (7-17) mg/dL Creatinine 0.80 (0.52-1.04) mg/dL Estimated GFR > 60 (>60) mL/min BUN/Creatinine Ratio 11.3 (6-22) Glucose 94 (80-110) mg/dL Lactate (0.7-2.1) mmol/L Calcium 7.6 L (8.4-10.2) mg/dL Total Bilirubin (0.2-1.3) mg/dL AST (14-36) IU/L ALT (<35) IU/L Alkaline Phosphatase (38-126) U/L Troponin I < 0.012 (0.01-0.034) ng/mL NT-Pro-B Natriuret Pep (<450) pg/mL Total Protein (6.3-8.2) g/dL Albumin (3.5-5.0) g/dL Globulin (1.7-4.1) g/dL Albumin/Globulin Ratio (1.0-2.8) Imaging Data Chest x-ray: Radiologist's Impression: PROCEDURE: XR CHEST 1V INDICATIONS: Shortness of breath TECHNIQUE: One view of the chest was acquired. COMPARISON: [facility], , XR CHEST 1V, 09/13/2023, 14:49. [facility], , XR CHEST 2V, 12/05/2022, 22:49. FINDINGS: Surgical changes and devices: None. Lungs and pleura: Lungs are clear. No pleural effusions or pneumothorax. Mediastinum: Mediastinal contours appear normal. Heart size is normal. Bones and chest wall: No suspicious bony lesions. Overlying soft tissues appear unremarkable. IMPRESSION: No acute cardiopulmonary abnormality is seen. Dictated by: New Morales M.D. on 01/06/2025 at 14:39 CT scan - abdomen/pelvis: Radiologist's Impression: PROCEDURE: CT ABDOMEN PELVIS W CON INDICATIONS: vomiting TECHNIQUE: After the administration of intravenous contrast, axial sections acquired from the lung bases to the pubic symphysis. Coronal and sagittal reformats were performed. For radiation dose reduction, the following was used: automated exposure control, adjustment of mA and/or kV according to patient size. COMPARISON: None. FINDINGS: Image quality: Diagnostic. Lower Chest: No significant findings. ABDOMEN: Liver: No solid mass. Gallbladder: Absent. Biliary ducts: No intrahepatic or extrahepatic biliary dilation, accounting for a post cholecystectomy state. Pancreas: No ductal dilation. Spleen: Size is within normal limits. Adrenal Glands: No adrenal nodules. Kidneys and Ureters: No hydronephrosis. No solid mass. No complex renal cystic lesion which requires follow up. Stomach and Bowel: Normal colonic caliber, without significant wall thickening. Prominent gastric rugae . Duodenal diverticulum extending into the pancreatic head measuring 3.4 x 1.9 cm, without obstruction. Normal appendix. Colonic diverticulosis without evidence of diverticulitis. Peritoneum: No abnormal intraperitoneal fluid. No free air. Ventral Wall: No significant ventral hernia. Abdominal Nodes: No retroperitoneal or mesenteric adenopathy by size criteria. Vessels: Aorta and inferior vena cava are normal in size. PELVIS: Pelvic Organs: Unremarkable. Bladder: No bladder wall thickening, accounting for underdistention. Pelvic Nodes: No enlarged lymph nodes. Miscellaneous: No inguinal hernias are seen. Bones: No aggressive osseous abnormality. Right total hip arthroplasty. Degenerative disc disease of the lumbar spine. IMPRESSION: Prominent gastric rugae, which probably indicates gastritis. No evidence of bowel obstruction. Colonic diverticulosis without evidence of diverticulitis. Normal appendix. Gallbladder is absent. Dictated by: New Morales M.D. on 01/06/2025 at 16:28 ECG Data Attestation: I personally reviewed and interpreted this ECG as follows: Interpretation: Artifact noted sinus rhythm rate 77 OK interval 108 QRS 74 QTC 432 MDM Narrative Medical decision making narrative: [facility] CC: Shortness of breath vomiting weakness Complicating co-morbidities: Hypertension Data collected from: Family Medical records reviewed: Record from [facility] reviewed on patient's phone had CT angio on January 03 2- for PE Differential considered: [ ] Exam documented above, pertinent findings include: Week 79-year-old lungs are clear but reactive airway abdomen soft Lab Test results independently reviewed as above. Pertinent findings: Potassium 2.9 WBC 6.3 Lactate 2.2 with repeat 1.5 No CHRISTINA BNP is 1740 troponin 0.019 Independently reviewed EKG as above Imaging studies independently reviewed: Chest x-ray no acute cardiopulmonary process Consultations: [ ] Treatments: Albuterol 2 L of fluids Bel Reglan Re-evaluations: Patient received significant improvement with albuterol she was not hypoxic Discussion: Patient is 79-year-old female presenting today with symptoms of generalized weakness reports vomiting but seems to be just coughing up sputum she is not really vomiting abdomen is soft. CT does not show any significant abnormality but is suggestive of a gastritis. She is tolerating p.o. fluids. She was not requiring oxygen. Multiple family members and spiritual all at bedside. Patient ambulate to the restroom with a walker now requiring oxygen. Family member at bedside requesting that patient be admitted to the hospital. Patient signed out to Dr. Hess <Melinda Hess, DO - Last Filed: 01/07/25 01:36> Lab Data Labs: Lab Results 01/06/25 01/06/25 01/07/25 Range/Units 14:10 16:26 05:16 WBC 6.3 3.1 L D (4.5-11.0) X10^3/uL RBC 4.51 3.72 L (4.0-5.2) X10^6/uL Hgb 13.5 11.4 L (12.0-16.0) g/dL Hct 38.8 32.2 L (36-46) % MCV 86.0 86.5 (80-100) fL MCH 30.0 30.6 (26-34) PG MCHC 34.9 35.4 (30-36) % RDW 14.0 14.3 (11.6-14.8) % Plt Count 522 H 435 H (150-400) X10^3/uL Neut % (Auto) 88.8 H 90.1 H (50-75) % Lymph % (Auto) 5.8 L 7.6 L (25-40) % [place] % (Auto) 5.0 2.1 L (3-14) % Eos % (Auto) 0.2 L 0.0 L (2-4) % Baso % (Auto) 0.2 0.2 (0-2) % Neut # (Auto) 5600 2800 (7688-5203) /uL Lymph # (Auto) 400 L 200 L (3951-2766) /uL [place] # (Auto) 300 100 (0-900) /uL Eos # (Auto) 0 0 (0-450) /uL Baso # (Auto) 0 0 (0-100) /uL PT 12.3 (9.4-12.5) SECONDS INR 1.1 (0.9-1.3) Sodium 134 L 133 L (137-145) mmol/L Potassium 2.9 L 3.4 (3.4-5.1) mmol/L Chloride 100 105 (98-107) mmol/L Carbon Dioxide 21 L 20 L (22-32) mmol/L BUN 10 9 (7-17) mg/dL Creatinine 0.81 0.71 (0.52-1.04) mg/dL Estimated GFR > 60 > 60 (>60) mL/min BUN/Creatinine Ratio 12.3 12.7 (6-22) Glucose 111 H 127 H (80-110) mg/dL Lactate 2.2 H 1.5 (0.7-2.1) mmol/L Calcium 8.2 L 7.0 L (8.4-10.2) mg/dL Total Bilirubin 0.9 (0.2-1.3) mg/dL AST 51 H (14-36) IU/L ALT 25 (<35) IU/L Alkaline Phosphatase 111 (38-126) U/L Troponin I 0.019 (0.01-0.034) ng/mL NT-Pro-B Natriuret Pep 1740 H (<450) pg/mL Total Protein 7.3 (6.3-8.2) g/dL Albumin 3.8 (3.5-5.0) g/dL Globulin 3.5 (1.7-4.1) g/dL Albumin/Globulin Ratio 1.1 (1.0-2.8) 01/08/25 01/08/25 Range/Units 05:01 13:14 WBC (4.5-11.0) X10^3/uL RBC (4.0-5.2) X10^6/uL Hgb (12.0-16.0) g/dL Hct (36-46) % MCV (80-100) fL MCH (26-34) PG MCHC (30-36) % RDW (11.6-14.8) % Plt Count (150-400) X10^3/uL Neut % (Auto) (50-75) % Lymph % (Auto) (25-40) % [place] % (Auto) (3-14) % Eos % (Auto) (2-4) % Baso % (Auto) (0-2) % Neut # (Auto) (2538-4090) /uL Lymph # (Auto) (0758-6902) /uL [place] # (Auto) (0-900) /uL Eos # (Auto) (0-450) /uL Baso # (Auto) (0-100) /uL PT (9.4-12.5) SECONDS INR (0.9-1.3) Sodium 134 L (137-145) mmol/L Potassium 3.5 (3.4-5.1) mmol/L Chloride 107 (98-107) mmol/L Carbon Dioxide 22 (22-32) mmol/L BUN 9 (7-17) mg/dL Creatinine 0.80 (0.52-1.04) mg/dL Estimated GFR > 60 (>60) mL/min BUN/Creatinine Ratio 11.3 (6-22) Glucose 94 (80-110) mg/dL Lactate (0.7-2.1) mmol/L Calcium 7.6 L (8.4-10.2) mg/dL Total Bilirubin (0.2-1.3) mg/dL AST (14-36) IU/L ALT (<35) IU/L Alkaline Phosphatase (38-126) U/L Troponin I < 0.012 (0.01-0.034) ng/mL NT-Pro-B Natriuret Pep (<450) pg/mL Total Protein (6.3-8.2) g/dL Albumin (3.5-5.0) g/dL Globulin (1.7-4.1) g/dL Albumin/Globulin Ratio (1.0-2.8) MDM Narrative Medical decision making narrative: [facility] CC: Shortness of breath vomiting weakness Complicating co-morbidities: Hypertension Data collected from: Family Medical records reviewed: Record from [facility] reviewed on patient's phone had CT angio on January 03- for PE Differential considered: [ ] Exam documented above, pertinent findings include: Week 79-year-old lungs are clear but reactive airway abdomen soft Lab Test results independently reviewed as above. Pertinent findings: Potassium 2.9 WBC 6.3 Lactate 2.2 with repeat 1.5 No CHRISTINA BNP is 1740 troponin 0.019 Independently reviewed EKG as above Imaging studies independently reviewed: Chest x-ray no acute cardiopulmonary process Consultations: [ ] Treatments: Albuterol 2 L of fluids Zofran Reglan Re-evaluations: Patient received significant improvement with albuterol she was not hypoxic Discussion: Patient is 79-year-old female presenting today with symptoms of generalized weakness reports vomiting but seems to be just coughing up sputum she is not really vomiting abdomen is soft. CT does not show any significant abnormality but is suggestive of a gastritis. She is tolerating p.o. fluids. She was not requiring oxygen. Multiple family members and spiritual all at bedside. Patient ambulate to the restroom with a walker now requiring oxygen. Family member at bedside requesting that patient be admitted to the hospital. Patient signed out to Dr. Hess 01/06/2025: 2027 Dr. Hess: Patient signed out to myself her workouts been completed she came in with generalized weakness states she has been sort of spitting up if not so much vomiting was recently diagnosed with pneumonia was put on Bactrim was sent a albuterol inhaler but has not filled it. She presents today she was was having trouble getting around her house blood pressures reported fairly low at home. She was not had any fevers she was denying any active abdominal pain or shortness of breath and this moment. States not really any diarrhea but she was hypokalemic, has not been vomiting in the department was able to ambulate to the bathroom but family in her states she was pretty unsteady they are concerned as she lives alone for safety overnight. Discussed patient maybe more of an observation that admission but we will discuss with hospitalist. On exam patient has a little bit atypical movement of her mouth seems somewhat consistent with a tardive dyskinesia which she states is longstanding. Lungs are clear, heart rates regular, patient does not appear to be fluid overloaded. Reviewed patient's labs and findings with her and her family. She has been able to tolerate fluids. Discussed with Dr. Daigle, tele hospitalist after discussion we will keep patient for observation. Discharge Plan Departure Patient Disposition: Admitted as Observation Clinical Impression: Hypokalemia, Weakness Admit Date/Time: 01/08/25 14:54 Admit Provider: Fidelia Daigle
[2025-01-06 15:53] LABS: Reflexed Lactate in 2 Hours Y
--- NOTE | 2025-01-06 16:05 | DI.CT.S_ITS ---
PROCEDURE: CT ABDOMEN PELVIS W CON INDICATIONS: vomiting TECHNIQUE: After the administration of intravenous contrast, axial sections acquired from the lung bases to the pubic symphysis. Coronal and sagittal reformats were performed. For radiation dose reduction, the following was used: automated exposure control, adjustment of mA and/or kV according to patient size. COMPARISON: None. FINDINGS: Image quality: Diagnostic. Lower Chest: No significant findings. ABDOMEN: Liver: No solid mass. Gallbladder: Absent. Biliary ducts: No intrahepatic or extrahepatic biliary dilation, accounting for a post cholecystectomy state. Pancreas: No ductal dilation. Spleen: Size is within normal limits. Adrenal Glands: No adrenal nodules. Kidneys and Ureters: No hydronephrosis. No solid mass. No complex renal cystic lesion which requires follow up. Stomach and Bowel: Normal colonic caliber, without significant wall thickening. Prominent gastric rugae . Duodenal diverticulum extending into the pancreatic head measuring 3.4 x 1.9 cm, without obstruction. Normal appendix. Colonic diverticulosis without evidence of diverticulitis. Peritoneum: No abnormal intraperitoneal fluid. No free air. Ventral Wall: No significant ventral hernia. Abdominal Nodes: No retroperitoneal or mesenteric adenopathy by size criteria. Vessels: Aorta and inferior vena cava are normal in size. PELVIS: Pelvic Organs: Unremarkable. Bladder: No bladder wall thickening, accounting for underdistention. Pelvic Nodes: No enlarged lymph nodes. Miscellaneous: No inguinal hernias are seen. Bones: No aggressive osseous abnormality. Right total hip arthroplasty. Degenerative disc disease of the lumbar spine. IMPRESSION: Prominent gastric rugae, which probably indicates gastritis. No evidence of bowel obstruction. Colonic diverticulosis without evidence of diverticulitis. Normal appendix. Gallbladder is absent. Dictated by: New Morales M.D. on 01/06/2025 at 16:28 Approved by: New Morales M.D. on 01/06/2025 at 16:30
[2025-01-06] MEDS: methylPREDNISolone 125 MG/2 ML VIAL IV (16:23)
[2025-01-06] MEDS: ALBUTEROL/IPRATROPIUM 3 ML AMPUL INH (16:24)
[2025-01-06] MEDS: POTASSIUM CHLORIDE IN WATER 10 MEQ/100 ML PIGGYBACK 100 MEQ IV ×2 (16:24→17:16)
[2025-01-06] MEDS: SODIUM CHLORIDE 0.9% 1,000 ML 1000 ML IV ×2 (16:24→17:15)
[2025-01-06 16:45] LABS: Lactate 2HR (Lactic Acid Rflx) 1.5 mmol/L (0.7-2.1)
[2025-01-06] MEDS: METOCLOPRAMIDE 10 MG/2 ML INJ IV (17:15)
--- NOTE | 2025-01-06 17:53 | PC.NURSE ---
Pt is reporting her tongue is feeling numb. drinking water appropriately. rec'ing K+ infusion without issue. Dr Arora aware. No new orders. family is outside room at RN station multiple times asking to speak with Dr. Advised that MD will be in as soon as possible. HR 78 BP 162/70. SPO2 100% RA. appears in NAD.
--- NOTE | 2025-01-06 19:53 | PC.NURSE ---
Pt able to ambulate 15 ft to the bathroom and return to room using FWW. Steady gait noted. Appears in NAD. Says that she feels a little shaky. Did not need assistance to walk this distance. Sats 99% on RA upon arrival to room. VSS. Denies feeling SOB.
[2025-01-06] MEDS: SODIUM CHLORIDE 0.9% 1,000 ML 125 ML IV (22:42)
--- NOTE | 2025-01-07 01:10 | PC.NURSE ---
Assumed care of pt from ED, pt ambulated from gurney to bed, oriented pt to call light. Pt A&Ox4, awake, reports mild nausea and abd pain. VSWNL, LS clear but diminished, active bowel tones x4, PIV flushing, applied tele. Pt resting comfortably. Pt upper dentures placed in container on vanity. Bed low/locked, call light in reach, plan of care continues.
--- NOTE | 2025-01-07 01:32 | PC.NURSE ---
Received WebEx order from MD Daigle to stop IVF NS @ 125mL/hr. Fluids discontinued, pt NS locked. Care continues.
[2025-01-07 02:59] VITALS: BP 122/69; PULSE 78; RESP 18; TEMP 36.1; O2SAT 98
--- NOTE | 2025-01-07 04:29 | PM.HP.1 ---
History of Present Illness History of Present Illness Date Patient Seen: 01/07/25 Chief complaint: Flu PNA having SOB, orthostatic Narrative: 79 y/o Female with h/o HTN, Tardive dyskinesia, GERD, Asthma, who lives at her home, and her grandson lives with her helping her with chores. Pt has noted for last 3 weeks, on going cough, without sputum production, was seen on 12/20/24 in ED at [facility], CTA chest done, : No Pe, was noted with mild Pneumonia, PE ruled out. Treated as out pt with Bactrim with transient symptom improvement. Has continued over last couple of weeks with dry heaves, no vomiting, productive cough ( n=mostly saliva), minimal lower quadrant abd minimal cramping, Denies diarrhea, BRBPR, no Tarry sotols, has had intermittent Nausea, no vomiting , rather spitting saliva, denies f/c, CP, Light Headedness, palpitations, SOB, or Syncope. Denies LE edema. No recent falls or trauma Notes gen weakness and decreased apatite. She was brought by family members to Ed for evaluation She had no hypoxia at rest in ED, was noted as walking using her walker, family members noted some unsteadiness, and insisted that pt be admitted to hospital. Her VSS O2 sats on RA 99% Afebrile. HR 80, RR 22 K low at 2.9 Troponin not elevated at 0.019 No Leukocytosis WBC : 6.3, HH stable plat 522 Lactate : 2.2 , repeat after 2 L NS IV, Lactate down to 1.5 BNP up at 1740 , though CXR : No acute findings CTAP : changes c/w : likely Gastritis , no Bowel obstruction Solumedrol 125 mg IV , and Duonen given , as pt was somewhat Short of breath Started on IVF NS, and IV KCl and referred to Hospitalist team for observation. [facility] Medical History (Updated 01/07/25 @ 05:07 by Fidelia Daigle MD) Elevated brain natriuretic peptide (BNP) level History of nuclear stress test (2008) Social History household members: family Smoking Status: Current every day smoker alcohol intake: never Meds Home Medications and Allergies Home Medications Medication Instructions Recorded Confirmed Type dicyclomine 20 mg tablet 20 mg PO QID #120 tabs 06/28/17 01/06/25 Rx baclofen 10 mg tablet 10 mg PO DAILY 12/05/22 01/06/25 History duloxetine 20 mg capsule,delayed 40 mg PO BID 12/05/22 01/06/25 History release losartan 50 mg tablet 50 mg PO DAILY 12/05/22 01/06/25 History amlodipine 2 mg 01/06/25 History ondansetron 4 mg disintegrating 2 mg PO Q6-8H PRN Nausea 01/06/25 01/06/25 History tablet sulfamethoxazole 800 1 tab PO BID 01/06/25 01/06/25 History mg-trimethoprim 160 mg tablet Allergies Allergy/AdvReac Type Severity Reaction Status Date / Time amoxicillin [AMOXICILLIN] Allergy Mild RASH Verified 12/05/22 22:50 codeine [CODEINE] Allergy Mild HEADACHE Verified 12/05/22 22:50 metronidazole [METRONIDAZOLE] Allergy Mild RASH Verified 12/05/22 22:50 morphine [MORPHINE] Allergy Mild NAUSEA Verified 12/05/22 22:50 Penicillins [PENICILLINS] Allergy Mild NAUSEA Verified 12/05/22 22:50 tetracycline [TETRACYCLINE] Allergy Mild RASH Verified 12/05/22 22:50 Review of Systems Review of Systems ROS: Yes All systems reviewed with the patient and are negative except as otherwise documented Exam Vital Signs (past 8 hours): - 01/06/25 20:30 01/06/25 20:30 01/06/25 21:00 Temperature Pulse Rate 90 Respiratory Rate 23 Blood Pressure 102/50 L 141/65 H Pulse Oximetry 97 Oxygen Delivery Method Room Air Oxygen Flow Rate 01/06/25 21:00 01/06/25 21:45 01/07/25 02:59 Temperature 98.2 F 97 F L Pulse Rate 77 82 78 Respiratory Rate 20 18 Blood Pressure 134/73 122/69 Pulse Oximetry 97 99 98 Oxygen Delivery Method Oxygen Flow Rate 0 Fraction of Inspired Oxygen 21 SaO2/FiO2 Ratio 476 Oxygen Delivery Method Room Air Oxygen Flow Rate 0 Narrative Exam Narrative: Add?[address] [address] History & Physical Report Patient: Serenity Shafer MR#: [id number] : 09/12/1943 Acct:[id number] Age/Sex: 81 / F Admit Date: 01/07/25 Provider: Fidelia Daigle MD History of Present Illness History of Present Illness Date Patient Seen: 01/07/25 Chief complaint: sent by cardiology for abn labs Narrative: 81 y/o F with multiple chronic medical problems, including extensive Cardiac history, including NC in Jun 2024, while on an [employer] cruise, she was taken off board to a [facility] and then to [place], where she had Cardiac cath done and [address];aced, was started on Brilinta at that time, and 3 months later Xarelto was 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, as well as continued on ASA 81 mg, also has h/o CEA of bilat Carotid Arteris with Left sided Carotid artery s/p patch and then stented, has h/o PAD and clauidication in her thighs , h/o HTN, HLD, Hypothyroidism and Parathyroid adenoma/ Hyper Parathyroidism, Depression, h/o LUE DVT ( 7 years ago), CKD stage 3-4, chronic pain sec top DJD, worsened by a fall last fall, with R hip fracture, and R knee meniscal tear, advised to continue pain meds, pt taking Tramadol and Tylenol, using a walker but in chronic R LE pain sec to these injuries, apparently not an operable candidate, has no h/o CHF, though had elevated BNPs on prior labs : 850 Jul 2024, Echo a few years ago : LVEF 60-65%, has not been on diuretics in the past, denies LE edema, Orthopnea, or PND. She was having c/o fatigue, DAIGLE, decreased energy, over last 3-4 weeks,and light headedness today, her Cardiology office checked CBC today and was noted to be with moderate Anemia, hb 6.1, she was advised to stop taking all blood thinners : including : Brilinta, Xarelto and ASA and was referred to ED for evaluation for her Anemia. Denies dysuria or hematuria. Pt states she had noted a few days of diarrhea, no abd pain. She denies tarry stools or BRBPR, though has not been looking at her BMs, to note color. Denies N/V , Hematemesis or Coffee grounds. She has not taken NSAIDs recently. She denies CP, abd pain, or syncope . No cough, f/c, severe headaches, or recent trauma or falls. Labs, imaging, VS in ED reviewed. Pt was started on 1 unit PRBC, repeat Hb was 6.7. Was started on secvond unit of PRBC and referred to Hospitalist service for observation. [facility] Medical History (Updated 01/07/25 @ 04:07 by Fidelia Daigle MD) Sinus bradycardia CKD stage 3b, GFR 30-44 ml/min Elevated brain natriuretic peptide (BNP) level Chronic right hip pain Left arm pain Acute cystitis with positive culture Chronic cough History of myocardial infarction Anemia Medicare annual wellness visit, subsequent Encounter for wellness examination in adult Cellulitis Eczema Trochanteric bursitis, left hip Diverticulosis Well adult exam Breast cyst Carotid stenosis Breast nodule Pulmonary nodules Chronic headache Hyperlipidemia Hyperparathyroidism Chronic kidney disease Paresthesia of left upper extremity Facet arthropathy, lumbosacral Pruritic rash Chronic anticoagulation Foraminal stenosis of cervical region Headache Fractures (~1977) Acne Mumps (~1953) Measles (~1953) Chicken pox (~1948) Cataracts, bilateral (~2013) Hypertension (~1999) Facial abrasion (~04/15/20) Surgical History History of left-sided carotid endarterectomy History of heart artery stent Anesthesia Status post tonsillectomy and adenoidectomy Status post appendectomy Status post tubal ligation Status post dilation and curettage History of cataract removal with insertion of prosthetic lens (~2013) Family History Father CancerGrandfather Heart diseaseGrandmother StrokeMother CancerBrother No problems noted. Grandfather No problems noted. Grandmother No problems noted. Social History household members: none Smoking Status: Never smoker alcohol intake: never substance use type: does not use Meds Home Medications and Allergies Home Medications Medication Instructions Recorded Confirmed Type multivitamin-iron 9 mg-folic acid 1 tab PO Q DAY ##0 09/27/11 01/07/25 History 400 mcg-calcium and minerals tablet (Thera M Plus (ferrous fumarate)) ferrous sulfate 325 mg (65 mg 325 mg PO DAILY 09/26/18 01/07/25 History iron) tablet disabled parking permit #1 ea 04/14/20 01/07/25 Rx mecobalamin (vitamin B12) 10,000 1,000 mcg IM QMONTH #1 ea 04/03/24 01/07/25 Rx mcg solution for injection tizanidine 2 mg tablet 2 mg PO 3XD PRN for muscle spasm 04/15/24 01/07/25 Rx #270 tabs albuterol sulfate 90 mcg/actuation 2 puff inhalation Q6H PRN 07/05/24 01/07/25 Rx aerosol inhaler shortness of breath or wheezing #8.5 grams carvedilol 3.125 mg tablet 3.125 mg PO BID 07/05/24 01/07/25 History rosuvastatin 10 mg tablet 10 mg PO ONCE PM 07/05/24 01/07/25 History levothyroxine 88 mcg tablet 88 mcg PO DAILY #90 tabs 07/24/24 01/07/25 Rx citalopram 40 mg tablet 40 mg PO DAILY #90 tabs 08/23/24 01/07/25 Rx ondansetron 4 mg disintegrating 4 mg PO Q8H PRN nausea and 10/23/24 01/07/25 Rx tablet vomiting #30 tabs tramadol 50 mg tablet 50 mg PO Q8H PRN pain #12 tabs 10/23/24 01/07/25 Rx nitroglycerin 0.4 mg sublingual 0.4 mg sublingual PRN PRN Chest 11/22/24 01/07/25 History tablet Pain Allergies Allergy/AdvReac Type Severity Reaction Status Date / Time tramadol Allergy Severe Anaphylaxis Verified 11/22/24 10:46 hydrocodone [HYDROCODONE] Allergy Intermediate NAUSEA / Verified 11/22/24 10:46 VOMITING Sulfa (Sulfonamide Allergy Mild Hives Verified 11/22/24 10:46 Antibiotics) [SULFA (SULFONAMIDE ANTIBIOTICS)] fentanyl AdvReac Severe Vomiting Verified 11/22/24 10:46 morphine [MORPHINE] AdvReac Mild Vomiting Verified 11/22/24 10:46 OPITATES Allergy Intermediate Gastrointestinal Uncoded 11/22/24 10:46 Upset Review of Systems Review of Systems ROS: Yes All systems reviewed with the patient and are negative except as otherwise documented Exam Vital Signs (past 8 hours): - 01/06/2519:30 01/06/2519:30 01/07/2520:00 Temperature Pulse Rate 57 L 56 L Respiratory Rate 22 15 Blood Pressure 162/72 H Pulse Oximetry 95 97 Oxygen Delivery Method Room Air Oxygen Flow Rate 01/07/2520:01 01/07/2520:01 01/07/2520:30 Temperature Pulse Rate 56 L Respiratory Rate 13 Blood Pressure 148/66 H 153/73 H Pulse Oximetry 97 Oxygen Delivery Method Oxygen Flow Rate 01/07/2520:30 01/06/2521:00 01/06/2521:00 Temperature Pulse Rate 54 L 57 L Respiratory Rate 11 L 21 Blood Pressure 151/67 H Pulse Oximetry 97 98 Oxygen Delivery Method Room Air Room Air Oxygen Flow Rate 01/06/2521:15 01/06/2521:15 01/06/2521:15 Temperature 98.8 F Pulse Rate 56 L 56 L Respiratory Rate 20 22 Blood Pressure 182/77 H 182/77 H Pulse Oximetry 98 Oxygen Delivery Method Oxygen Flow Rate 01/06/2521:30 01/06/2521:35 01/06/2521:38 Temperature 98.7 F Pulse Rate 54 L 54 L 57 L Respiratory Rate 22 20 23 Blood Pressure 141/63 H Pulse Oximetry 97 99 Oxygen Delivery Method Room Air Room Air Oxygen Flow Rate 01/06/2522:00 01/06/2522:00 01/06/2522:30 Temperature Pulse Rate 54 L Respiratory Rate 23 Blood Pressure 143/64 H 134/60 Pulse Oximetry 99 Oxygen Delivery Method Room Air Oxygen Flow Rate 01/06/2522:30 01/06/2523:00 01/06/2523:01 Temperature Pulse Rate 54 L 52 L Respiratory Rate 21 22 Blood Pressure 163/70 H Pulse Oximetry 97 93 Oxygen Delivery Method Oxygen Flow Rate 01/06/2523:01 01/06/2523:30 01/06/2523:30 Temperature Pulse Rate 51 L 51 L Respiratory Rate 21 21 Blood Pressure 137/63 Pulse Oximetry 95 93 Oxygen Delivery Method Room Air Room Air Oxygen Flow Rate 01/07/2500:00 01/07/2500:00 01/07/2500:30 Temperature Pulse Rate 52 L 54 L Respiratory Rate 23 19 Blood Pressure 136/63 Pulse Oximetry 94 95 Oxygen Delivery Method Room Air Oxygen Flow Rate 01/07/2500:31 01/07/2500:31 01/07/2500:50 Temperature 97.0 F L Pulse Rate 53 L 57 L Respiratory Rate 21 19 Blood Pressure 130/58 L 146/36 H Pulse Oximetry 94 97 Oxygen Delivery Method Room Air Oxygen Flow Rate 0 01/07/2501:31 01/07/2501:47 Temperature 97 F L 97.2 F L Pulse Rate 57 L 47 L Respiratory Rate 20 16 Blood Pressure 144/36 H 134/34 L Pulse Oximetry Oxygen Delivery Method Oxygen Flow Rate Oxygen Delivery Method Room Air Oxygen Flow Rate 0 Narrative Exam Narrative: Physical exam: Pleasant elderly female laying in bed , in NAD, able to answer questions appropriately. though sleepy, as its past her bedtime, Denies CP or Abd Pain. HEENT: At/ NC EOMI, PERRL, Non icteric Sclerae Neck is supple, no TMG, no JVD, no adenopathy Oral mmm Chest : CTA , BS equal bilat. No w/ Rales or Rhonchi, Heart: RRR no M/G/R Abd : Soft , NT, ND , No HSM, no flank tenderness. BS present and WNL No Flank Tenderness Ext: No edema, no calf tenderness bilat. PP 2 + symmetric Skin : warm and dry, no rashes Neuro : A and O x 3 , non focal Psyche: Insight and judgement WNL Objective Labs 01/06/25 14:10 01/06/25 14:10 Labs: Laboratory Results - last 24 hr 01/06/25 01/06/25 14:10 16:26 WBC 6.3 RBC 4.51 Hgb 13.5 Hct 38.8 MCV 86.0 MCH 30.0 MCHC 34.9 RDW 14.0 Plt Count 522 H Neut % (Auto) 88.8 H Lymph % (Auto) 5.8 L [place] % (Auto) 5.0 Eos % (Auto) 0.2 L Baso % (Auto) 0.2 Neut # (Auto) 5600 Lymph # (Auto) 400 L [place] # (Auto) 300 Eos # (Auto) 0 Baso # (Auto) 0 PT 12.3 INR 1.1 Sodium 134 L Potassium 2.9 L Chloride 100 Carbon Dioxide 21 L BUN 10 Creatinine 0.81 Estimated GFR > 60 BUN/Creatinine Ratio 12.3 Glucose 111 H Lactate 2.2 H 1.5 Calcium 8.2 L Total Bilirubin 0.9 AST 51 H ALT 25 Alkaline Phosphatase 111 Troponin I 0.019 NT-Pro-B Natriuret Pep 1740 H Total Protein 7.3 Albumin 3.8 Globulin 3.5 Albumin/Globulin Ratio 1.1 Assessment & Plan Assessment and plan (1) Weakness: Problem details: Generalized weakness, likely sec to Nausea, chrissy heaving, decreased oral intake No active infection After anti emetic and IVF given has been feeling better. Consult PT/OT Status: Acute (2) Hypokalemia: Problem details: sec to Decreased Oral intake Potassium IV replaced in ED Monitor Electrolytes Check Mg Status: Acute (3) Gastritis: Problem details: Dry heaving, Nausea CTAP : Gastritis identified Continue Protonix bid HH stable Qualifiers: Gastritis type: unspecified gastritis Chronicity: acute Gastritis bleeding: without bleeding Qualified Code(s): K29.00 - Acute gastritis without bleeding Status: Acute (4) Major depressive disorder, recurrent episode with anxious distress: Problem details: Chronic Continue home Duloxetine Status: Chronic Time-Based Coding :: [TOTAL MINUTES] spent with patient and on the chart (including review of chart, obtaining history, exam, reviewing outside data, placing orders, documenting exam and treatment plan, and counseling patient) on [DATE]. Quality VTE Deep Vein Thrombosis/Pulmonary Embolism Present on Admission: No
[2025-01-07 05:55] LABS: Add Manual Diff / Slide Review NO; Basophils Absolute Auto 0 /uL (0-100); Basophils Percent Auto 0.2 % (0-2); Eosinophils Absolute Auto 0 /uL (0-450); Hematocrit 32.2 % (36-46); Hemoglobin 11.4 g/dL (12.0-16.0); Lymphocytes Absolute Auto 200 /uL (1100-4500); Lymphocytes Percent Auto 7.6 % (25-40); Mean Corpuscular HGB Conc 35.4 % (30-36); Mean Corpuscular Hemoglobin 30.6 PG (26-34); Mean Corpuscular Volume 86.5 fL (80-100); Monocytes Absolute Auto 100 /uL (0-900); Monocytes Percent Auto 2.1 % (3-14); Neutrophils Absolute Auto 2800 /uL (1500-7000); Neutrophils Percent Auto 90.1 % (50-75); Platelet Count 435 X10^3/uL (150-400); Red Blood Cell Count 3.72 X10^6/uL (4.0-5.2); Red Cell Distribution Width 14.3 % (11.6-14.8); White Blood Cell Count 3.1 X10^3/uL (4.5-11.0)
[2025-01-07 06:01] LABS: BUN Creatinine Ratio 12.7 (6-22); Blood Urea Nitrogen 9 mg/dL (7-17); Carbon Dioxide 20 mmol/L (22-32); Chloride 105 mmol/L (98-107); Estimated Glomerular Filt Rate > 60 mL/min (>60); Glucose 127 mg/dL (80-110); HEMOLYSIS < 15 (0-50); Potassium 3.4 mmol/L (3.4-5.1); Sodium 133 mmol/L (137-145)
[2025-01-07] MEDS: PANTOPRAZOLE 40 MG VIAL IV ×2 (06:07→18:14)
--- NOTE | 2025-01-07 07:41 | P.HP_ITS ---
History of Present Illness History of Present Illness Date Patient Seen: 01/07/25 Chief complaint: Flu PNA having SOB, orthostatic Narrative: From night doctor: The patient is a 79 y/o Female with h/o HTN, Tardive dyskinesia, GERD, Asthma, who lives at her home, and her grandson lives with her helping her with chores. Pt has noted for last 3 weeks, on going cough, without sputum production, was seen on 12/20/24 in ED at [facility], CTA chest done, : No Pe, was noted with mild Pneumonia, PE ruled out. Treated as out pt with Bactrim with transient symptom improvement. Has continued over last couple of weeks with dry heaves, no vomiting, productive cough ( n=mostly saliva), minimal lower quadrant abd minimal cramping, Denies diarrhea, BRBPR, no Tarry sotols, has had intermittent Nausea, no vomiting , rather spitting saliva, denies f/c, CP, Light Headedness, palpitations, SOB, or Syncope. Denies LE edema. No recent falls or trauma Notes gen weakness and decreased apatite. She was brought by family members to Ed for evaluation She had no hypoxia at rest in ED, was noted as walking using her walker, family members noted some unsteadiness, and insisted that pt be admitted to hospital. Her VSS O2 sats on RA 99% Afebrile. HR 80, RR 22 K low at 2.9 Troponin not elevated at 0.019 No Leukocytosis WBC : 6.3, HH stable plat 522 Lactate : 2.2 , repeat after 2 L NS IV, Lactate down to 1.5 BNP up at 1740 , though CXR : No acute findings CTAP : changes c/w : likely Gastritis , no Bowel obstruction Solumedrol 125 mg IV , and Duonen given , as pt was somewhat Short of breath Started on IVF NS, and IV KCl and referred to Hospitalist team for observation. S: She lives in [place], with her grandson. She has been weeks since having pneumonia. She was had a very poor appetite with little eating or drinking for the past several days. She was also had limited diarrhea and some epigastric abdominal pain. She was so weak, that she could not walk yesterday. She does feel better today. She denies any cough, or dyspnea. Her whole-body weakness is slowly improving. PFSH Medical History Elevated brain natriuretic peptide (BNP) level History of nuclear stress test (2008) Social History household members: family Smoking Status: Current every day smoker alcohol intake: never Meds Home Medications and Allergies Home Medications Medication Instructions Recorded Confirmed Type dicyclomine 20 mg tablet 20 mg PO QID #120 tabs 06/28/17 01/06/25 Rx baclofen 10 mg tablet 10 mg PO DAILY 12/05/22 01/06/25 History duloxetine 20 mg capsule,delayed 40 mg PO BID 12/05/22 01/06/25 History release losartan 50 mg tablet 50 mg PO DAILY 12/05/22 01/06/25 History amlodipine 2 mg 01/06/25 History ondansetron 4 mg disintegrating 2 mg PO Q6-8H PRN Nausea 01/06/25 01/06/25 History tablet sulfamethoxazole 800 1 tab PO BID 01/06/25 01/06/25 History mg-trimethoprim 160 mg tablet Allergies Allergy/AdvReac Type Severity Reaction Status Date / Time amoxicillin [AMOXICILLIN] Allergy Mild RASH Verified 12/05/22 22:50 metronidazole [METRONIDAZOLE] Allergy Mild RASH Verified 12/05/22 22:50 tetracycline [TETRACYCLINE] Allergy Mild RASH Verified 12/05/22 22:50 codeine [CODEINE] AdvReac Mild HEADACHE Verified 01/07/25 07:49 morphine [MORPHINE] AdvReac Mild NAUSEA Verified 01/07/25 07:49 Penicillins [PENICILLINS] AdvReac Mild NAUSEA Verified 01/07/25 07:49 Review of Systems Review of Systems Narrative: All else reviewed and otherwise unremarkable except as noted in the history and physical. Exam Vital Signs (past 8 hours): - 01/07/25 02:59 Temperature 97 F L Pulse Rate 78 Respiratory Rate 18 Blood Pressure 122/69 Pulse Oximetry 98 Oxygen Flow Rate 0 Fraction of Inspired Oxygen 21 SaO2/FiO2 Ratio 476 Oxygen Delivery Method Room Air Oxygen Flow Rate 0 Narrative Exam Narrative: NAD, alert and oriented, fluent speech, calm. Flat affect. Normocephalic skull, EOMI, anicteric sclera, symmetric pupils. Oropharynx unremarkable, no droop. Neck supple, midline trachea, no adenopathy. Lungs clear, normal rate and effort. Heart regular, no murmur gallop or rub. Abdomen is soft, non distended and non tender. Extremities are free of edema. Skin is free of rash or lesions. Joints are not swollen or deformed. Judgment appears to be normal. Objective ECG Impression: Sinus rhythm with marked sinus arrhythmia with short NM ST & T wave abnormality, consider inferior ischemia Imaging Multiple studies: : Radiologist's impression: CXR: IMPRESSION: No acute cardiopulmonary abnormality is seen. Abdomen CT: IMPRESSION: Prominent gastric rugae, which probably indicates gastritis. No evidence of bowel obstruction. Colonic diverticulosis without evidence of diverticulitis. Normal appendix. Gallbladder is absent. Labs 01/07/25 05:16 01/07/25 05:16 Labs: Laboratory Results - last 24 hr 01/06/25 01/06/25 01/07/25 14:10 16:26 05:16 WBC 6.3 3.1 L D RBC 4.51 3.72 L Hgb 13.5 11.4 L Hct 38.8 32.2 L MCV 86.0 86.5 MCH 30.0 30.6 MCHC 34.9 35.4 RDW 14.0 14.3 Plt Count 522 H 435 H Neut % (Auto) 88.8 H 90.1 H Lymph % (Auto) 5.8 L 7.6 L Robeson % (Auto) 5.0 2.1 L Eos % (Auto) 0.2 L 0.0 L Baso % (Auto) 0.2 0.2 Neut # (Auto) 5600 2800 Lymph # (Auto) 400 L 200 L Robeson # (Auto) 300 100 Eos # (Auto) 0 0 Baso # (Auto) 0 0 PT 12.3 INR 1.1 Sodium 134 L 133 L Potassium 2.9 L 3.4 Chloride 100 105 Carbon Dioxide 21 L 20 L BUN 10 9 Creatinine 0.81 0.71 Estimated GFR > 60 > 60 BUN/Creatinine Ratio 12.3 12.7 Glucose 111 H 127 H Lactate 2.2 H 1.5 Calcium 8.2 L 7.0 L Total Bilirubin 0.9 AST 51 H ALT 25 Alkaline Phosphatase 111 Troponin I 0.019 NT-Pro-B Natriuret Pep 1740 H Total Protein 7.3 Albumin 3.8 Globulin 3.5 Albumin/Globulin Ratio 1.1 Assessment & Plan Assessment & Plan narrative: 1. Weakness, present on admission and active. Recently treated for pneumonia. She was on Bactrim. Generalized weakness, likely sec to Nausea, chrissy heaving, decreased oral intake No obvious active infection After anti emetic and IVF given has been feeling better. Consult PT/OT 2. Hypokalemia, present on admission and improving. sec to Decreased Oral intake Potassium IV replaced in ED Monitor Electrolytes Check Mg 3. Gastritis, present on admission and active. Dry heaving, Nausea CTAP : Gastritis identified Continue Protonix bid 4. Major depressive disorder with anxiety. Present on admission and active. Continue home Duloxetine PLAN: -PT&OT. -Replace electrolytes. -IVF -ECHO as ordered. Anticipate 1 midnight in the hospital, supports a observation status. Full code. Time-Based Coding :: 35 min spent with patient and on the chart (including review of chart, obtaining history, exam, reviewing outside data, placing orders, documenting exam and treatment plan, and counseling patient) on 01/07. Quality VTE Deep Vein Thrombosis/Pulmonary Embolism Present on Admission: No MIPS - Admit I confirm the patient?s Advance Care Plan is present, Code status is documented, Surrogate decision maker is in patient?s record [If Yes, STOP here]: Yes MIPS - Meds 'Current medications' to include all prescriptions, [id number]-[id number] products, herbals, cannabis/cannabidiol products, and vitamin/mineral/dietary (nutritional) supplements. I have utilized all available resources to obtain, update, or review the patient?s current medications. [If Yes, STOP here]: Yes
[2025-01-07 08:00] VITALS: BP 138/79; PULSE 94; RESP 18; TEMP 36.3; O2SAT 99
[2025-01-07] MEDS: SUCRALFATE 1 GM/10 ML ORAL SUSP PO ×4 (08:25→20:14)
[2025-01-07] MEDS: BACLOFEN 10 MG TABLET PO (08:25)
[2025-01-07] MEDS: ENOXAPARIN 40 MG/0.4 ML SYRINGE SUBCUT (08:25)
[2025-01-07] MEDS: DULOXETINE 20 MG CAPSULE 40 MG PO ×2 (08:25→20:14)
[2025-01-07] MEDS: POTASSIUM CHLORIDE 20 MEQ TAB 40 MEQ PO (08:25)
[2025-01-07] MEDS: ACETAMINOPHEN 325 MG TABLET 650 MG PO ×2 (08:40→18:50)
--- NOTE | 2025-01-07 11:16 | DI.ECHO.S_ITS ---
[place] +---------+ Hospital : : [address] : [address] : : [id number] : : Phone: [phone] Echocardiogram Report + + :Name: CRISTINA BATISTA Study Date: 01/07/2025 Height: 64 in : :Hospital ReadingLocation: Weight: 143 lb : : Gender: Female BSA: 1.7 m2 : :: 1945 Age: 79 yrs BP: 138/79 mmHg: :Reason For Study: ELEVATED BNP : :Ordering Physician: SERGIO, : :MARTELL VILLANUEVA Performed By: Magdalena Burgos : :Referring: MARTELL HILL MD : + + Interpretation Summary Normal sinus rhythm. Normal LV size and wall thickness. There is mild global hypokinesis with ejection fraction 45-50%. Worst movement is demonstrated by basal inferolateral and mid-inferolateral segments. EPSS is 1.5 cm consistent with cardiomyopathy. Mild left atrial enlargement; otherwise normal chamber sizes. No significant valvular abnormalities. Estimated PA systolic pressure is 29 mmHg assuming right atrial pressure of 8 mmHg. Compared to prior echo obtained November 07, 2019, cardiomyopathy is new. EPSS is up from 0.8 cm to 1.5 cm consistent with worsening LV systolic function. Procedure: A two-dimensional transthoracic echocardiogram with color flow and Doppler was performed. The study quality was technically adequate. Comparison is made with the echocardiogram of 11/07/2019. The patient was in sinus rhythm with heart rates between 76-86 bpm during the exam. Left Ventricle: The left ventricle is normal in size and wall thickness. The ejection fraction is estimated to be 45-50%. Right Ventricle: The right ventricle is normal in size and function. Atria: The left atrium is mildly dilated. Right atrial size is normal. There is no Doppler evidence for an interatrial shunt. The atrial septum is aneurysmal. The interatrial septum bows toward right atrium consistent with elevated left atrial pressure. Mitral Valve: The mitral valve leaflets appear to open well. There is trace mitral regurgitation. Aortic Valve: The aortic valve is trileaflet. The aortic valve opens well. There is no aortic valve stenosis. There is mild aortic regurgitation. Tricuspid Valve: The tricuspid valve leaflets are thin and pliable. There is mild tricuspid regurgitation. Pulmonic Valve: The pulmonic valve leaflets are thin and pliable; valve motion is normal. There is mild pulmonic regurgitation. Great Vessels: The aortic root is normal size. The dimensions of the ascending aorta are normal. The IVC is of normal diameter and collapses less than 50% with a sniff. This suggests a right atrial pressure of 8 mm Hg. Pericardium/ Pleura There is no pericardial effusion. There is no pleural effusion. MMode/2D Measurements & Calculations LVIDd: 4.7 cm LVOT diam: 2.3 cm LVIDs: 3.6 cm Ao root diam: 3.2 cm FS: 23.8 % asc Aorta Diam: 3.4 cm EPSS: 1.5 cm Ao Arch Diam (Prox Trans): 2.6 cm IVSd: 0.75 cm LVPWd: 0.62 cm LV lombardi. diameter/BSA (cm/m^2): 2.8 LV sys. diameter/BSA (cm/m^2): 2.1 LA A2 area: 23.3 cm2 RA long axis: 5.2 cm LA A4 area: 18.2 cm2 RA area: 15.4 cm2 LA length (vol): 5.4 cm RA vol: 39.0 ml LA vol: 66.4 ml RA : 23.0 ml/m2 LA vol index: 39.1 ml/m2 IVC diam: 1.3 cm RVD1 (basal): 3.3 cm RVD2 (mid): 3.2 cm TAPSE: 2.0 cm Doppler Measurements & Calculations Ao V2 max: 112.5 cm/sec LVOT Max Michael: 83.3 cm/sec Ao V2 mean: 77.6 cm/sec LV V1 max P.8 mmHg Ao max P.1 mmHg LV V1 VTI: 16.2 cm Ao mean P.7 mmHg EILEEN(I,D): 2.7 cm2 Ao V2 VTI: 26.1 cm EILEEN(V,D): 3.2 cm2 sev ratio: 0.62 EILEEN indexed to BSA (cm^2/m^2): 1.6 MV E max michael: 34.5 cm/sec TR max michael: 227.0 cm/sec MV A max michael: 84.2 cm/sec TR max P.6 mmHg MV E/A: 0.41 PA V2 max: 56.7 cm/sec Med Peak E' Michael: 5.7 cm/sec PA V2 mean: 38.3 cm/sec E/E' med: 6.1 PA mean P.67 mmHg Lat Peak E' Michael: 5.9 cm/sec PA pr(Accel): 30.2 mmHg E/E' lat: 5.8 E/e' average: 6.0 MV dec time: 0.19 sec SV(LVOT): 69.9 ml Electronically signed by: Elsi Bertrand M.D. on [place] Physician:01/07/2025 02:52 PM
[2025-01-07 12:00] VITALS: BP 136/68; PULSE 90; RESP 18; TEMP 36.4; O2SAT 98
--- NOTE | 2025-01-07 13:47 | CM.DANOTE ---
Initial DCP Assessment Visit Note Reviewed EMR and team rounds for status updates. Met with pt at bedside to introduce self and role, pt was found to be alert/oriented, and able to share her home situation and concerns. Pt lives modified independently in her own home with her 17 year-old grandson, whom she has raised. He assists home chores and care assistance for pt as needed. Once medically cleared for d/c, pt's granddaughter will transport her back home. Pt has good support through the [employer] in assisting her with her housing situation and basic needs- no further CM d/c needs are anticipated at this time. Payor: Medicaid PCP: Latonya Hooker Pt is a 79 year-old F who presents to the ED last evening with continued complaints of cough, fevers, overall weakness, nausea/vomiting. She had been seen earlier this month on both 12/20 and 12/24, at which time she was confirmed to have a small pneumonia, and was provided oral ABO's for and d/c'd home from the ED. Pt was otherwise non-symptomatic, was negative for continued pneumonia with x-ray imaging. Plan was made to admit for PT/OT assessments and IV fluids/electorlyte replacement. DCP will continue to monitor for any further evolving needs prior to her d/c home, anticipated for 01/08 (Mon). Discharge Planning/Care Management CM Discharge Assessment Start: 01/07/25 13:26 Freq: Status: Active Protocol: Document 01/07/25 13:26 DPL (Rec: 01/07/25 13:44 DPL [id number]) Discharge Planning Assessment Assigned Air Traffic Instructor RAFAEL Navarrete Advance Directives? No History Provided By Patient,Medical Record Has Patient been admitted in last 30 No days? Prior Living Arrangements House Household Members family Type of transporation used prior to Relies on Others admit Independent with ADL's No: modified independent with a walker, family assistance Is patient alert and oriented? Yes Needs Assistance With Home Chores / Shopping Caregiver for Another No DME Already Rented / Owned FWW / Walker Comment Pending final PT/OT evals and recommendations. Barriers to Discharge No Referrals Initiated None needed If patient plan is home with home health No : Has signed face to face form been completed? If patient plan is SNF: Has PASSR been No completed? Whiteboard Updated in Patient Room with Yes name and ext. # of Air Traffic Instructor Review Status In Process Please Provide Date Initial DC 01/07/25 Assessment Was Performed
[2025-01-07 16:00] VITALS: BP 128/64; PULSE 86; RESP 18; TEMP 36.6; O2SAT 99
[2025-01-07 20:00] VITALS: BP 154/87; PULSE 90; RESP 17; TEMP 36.8; O2SAT 99
[2025-01-07 20:14] VITALS: BP 128/64; PULSE 6
[2025-01-07] MEDS: carvediloL 3.125 MG TABLET PO (20:14)
[2025-01-08] VITALS (8 sets, daily range): BP systolic 126–174; BP diastolic 60–103; PULSE 63–84; RESP 18–20; TEMP 35.9–36.8; O2SAT 95–100
[2025-01-08 05:38] LABS: BUN Creatinine Ratio 11.3 (6-22); Blood Urea Nitrogen 9 mg/dL (7-17); Calcium 7.6 mg/dL (8.4-10.2); Carbon Dioxide 22 mmol/L (22-32); Chloride 107 mmol/L (98-107); Estimated Glomerular Filt Rate > 60 mL/min (>60); Glucose 94 mg/dL (80-110); HEMOLYSIS < 15 (0-50); Potassium 3.5 mmol/L (3.4-5.1); Sodium 134 mmol/L (137-145)
[2025-01-08] MEDS: PANTOPRAZOLE 40 MG VIAL IV (05:54)
--- NOTE | 2025-01-08 07:31 | PM.PN.1 ---
Subjective Subjective Interval history: S: She feels weak and has some nausea. She was anorexia. She was about the same as yesterday. She denies any chest pain, but does have some dyspnea with movement. Summary: She was a 79 year old female with a history of hypertension tardive dyskinesia, and asthma. She was had a cough and general weakness for 3 weeks. She was treated outpatient for pneumonia with Bactrim. She was so weak she could not walk today before coming to the hospital. She was not hypoxic but was hypokalemic upon her arrival. Her troponin was 0.019 and her WBC was 6.3. She was given IV fluids and her lactic acid of 2.[address] of the abdomen and pelvis indicated gastritis. She was given steroids and DuoNebs for reactive airways. An echo revealed a new LV EF declined of 45-50% with some wall motion abnormalities. Valves were unremarkable. Exam Vital Signs (past 8 hours): - 01/08/25 00:00 01/08/25 04:00 Temperature 98.3 F 97.8 F Pulse Rate 81 73 Respiratory Rate 19 18 Blood Pressure 153/87 H 132/91 H Pulse Oximetry 95 98 Fraction of Inspired Oxygen 21 SaO2/FiO2 Ratio 476 Oxygen Delivery Method Room Air Oxygen Flow Rate 0 Narrative Exam Narrative: NAD, alert and oriented. Fluent speech. Lungs are clear, normal rate and effort. Heart is regular, no murmur gallop or rub. Abdomen is soft, non distended. Extremities are free of edema. Objective ECG Impression: Sinus rhythm with marked sinus arrhythmia with short [place] ST & T wave abnormality, consider inferior ischemia Imaging Multiple studies:: Radiologist's impression: CXR: IMPRESSION: No acute cardiopulmonary abnormality is seen. Abdomen CT: IMPRESSION: Prominent gastric rugae, which probably indicates gastritis. No evidence of bowel obstruction. Colonic diverticulosis without evidence of diverticulitis. Normal appendix. Gallbladder is absent. ECHO: Normal LV size and wall thickness with mild global hypokinesis and an EF of 45-50%. Some wall motion abnormality in the base and inferolateral segments. Normal valves and chamber sizes. PA systolic pressure 29. Compared to an echo of November 07 when she had relatively normal LV function. Labs 01/07/25 05:16 01/08/25 05:01 Labs: Laboratory Results - last 24 hr 01/08/25 05:01 Sodium 134 L Potassium 3.5 Chloride 107 Carbon Dioxide 22 BUN 9 Creatinine 0.80 Estimated GFR > 60 BUN/Creatinine Ratio 11.3 Glucose 94 Calcium 7.6 L [facility] Medical History Elevated brain natriuretic peptide (BNP) level History of nuclear stress test (2008) Social History household members: family Smoking Status: Current every day smoker alcohol intake: never Assessment & Plan Assessment & Plan narrative: 1. Weakness, present on admission and active. Recently treated for pneumonia. She was on Bactrim. Consult PT/OT 2. Hypokalemia, present on admission and improving. sec to Decreased Oral intake Potassium IV replaced in ED Monitor Electrolytes (K,Mg). 3. New LV systolic dysfunction. Present on admission and active. Troponins are not elevated. 4. Lactic acidosis, present on admission and improved. 5. Volume depletion, present on admission and improved. 6. Gastritis, present on admission and active. Dry heaving, Nausea CTAP : Gastritis identified Continue Protonix bid 7. Major depressive disorder with anxiety. Present on admission and active. Continue home Duloxetine PLAN: -PT&OT. -Replace electrolytes. -IVF -start a beta blockade with low-dose carvedilol on January 07. We will add statin and lisinopril today. Cardiology had recommended transfer for possible coronary catheterization yesterday, this is Dr. Bertrand at [facility]. [facility] however is full can not accept transfers yesterday and today. I made several calls to the [place] transfer line and no one is answering. Dr. Bertrand did add that it would likely be acceptable to start her on guideline based therapy with outpatient follow up on an expedited basis as well. She needs a second midnight in the hospital, supports inpatient status. Treating weakness and new systolic heart failure with titration of guideline based therapy. Also exploring the possibility of transfer, at this point without success. Full code. Time-Based Coding :: [TOTAL MINUTES] spent with patient and on the chart (including review of chart, obtaining history, exam, reviewing outside data, placing orders, documenting exam and treatment plan, and counseling patient) on [DATE]. Quality VTE Deep Vein Thrombosis/Pulmonary Embolism Present on Admission: No
[2025-01-08] MEDS: ACETAMINOPHEN 325 MG TABLET 650 MG PO ×2 (07:54→21:37)
[2025-01-08] MEDS: SUCRALFATE 1 GM/10 ML ORAL SUSP PO ×4 (07:54→21:34)
[2025-01-08] MEDS: DULOXETINE 20 MG CAPSULE 40 MG PO ×2 (08:38→21:37)
[2025-01-08] MEDS: ENOXAPARIN 40 MG/0.4 ML SYRINGE SUBCUT (08:38)
[2025-01-08] MEDS: carvediloL 3.125 MG TABLET PO ×2 (08:38→21:35)
[2025-01-08] MEDS: BACLOFEN 10 MG TABLET PO (08:38)
[2025-01-08] MEDS: POTASSIUM CHLORIDE 20 MEQ TAB PO (11:44)
[2025-01-08 13:58] LABS: Troponin I < 0.012 ng/mL (0.01-0.034)
--- NOTE | 2025-01-08 14:44 | CM.DPC ---
DCP Cont. Reviewed EMR and team rounds for status updates. Pt continues to feel unwell, and Hospitalist is considering transfering her for cardiac issues. Monitoring for final decision. Once stable, her granddaughter will transport her home.
[2025-01-08] MEDS: PANTOPRAZOLE DR 40 MG TABLET PO (18:32)
[2025-01-09] VITALS: BP 124/85; PULSE 87; RESP 24; TEMP 36.6; O2SAT 97
[2025-01-09 06:00] VITALS: BP 167/96; PULSE 95; RESP 20; TEMP 36.4; O2SAT 99
[2025-01-09] MEDS: PANTOPRAZOLE DR 40 MG TABLET PO (07:00)
[2025-01-09] MEDS: SUCRALFATE 1 GM/10 ML ORAL SUSP PO (07:02)
[2025-01-09 07:03] LABS: Add Manual Diff / Slide Review NO; BUN Creatinine Ratio 10.4 (6-22); Basophils Absolute Auto 100 /uL (0-100); Basophils Percent Auto 1.1 % (0-2); Blood Urea Nitrogen 7 mg/dL (7-17); Calcium 8.2 mg/dL (8.4-10.2); Carbon Dioxide 20 mmol/L (22-32); Chloride 108 mmol/L (98-107); Eosinophils Absolute Auto 100 /uL (0-450); Eosinophils Percent Auto 1.4 % (2-4); Estimated Glomerular Filt Rate > 60 mL/min (>60); Glucose 93 mg/dL (80-110); HEMOLYSIS 21 (0-50); Hematocrit 36.2 % (36-46); Hemoglobin 12.7 g/dL (12.0-16.0); Lymphocytes Absolute Auto 2100 /uL (1100-4500); Lymphocytes Percent Auto 43.9 % (25-40); Mean Corpuscular HGB Conc 34.9 % (30-36); Mean Corpuscular Hemoglobin 30.3 PG (26-34); Mean Corpuscular Volume 86.9 fL (80-100); Monocytes Absolute Auto 600 /uL (0-900); Monocytes Percent Auto 12.5 % (3-14); Neutrophils Absolute Auto 1900 /uL (1500-7000); Neutrophils Percent Auto 41.1 % (50-75); Platelet Count 425 X10^3/uL (150-400); Potassium 3.9 mmol/L (3.4-5.1); Red Blood Cell Count 4.17 X10^6/uL (4.0-5.2); Red Cell Distribution Width 14.6 % (11.6-14.8); Sodium 135 mmol/L (137-145); White Blood Cell Count 4.7 X10^3/uL (4.5-11.0)
[2025-01-09] MEDS: ENOXAPARIN 40 MG/0.4 ML SYRINGE SUBCUT (09:38)
[2025-01-09] MEDS: DULOXETINE 20 MG CAPSULE 40 MG PO (09:38)
[2025-01-09] MEDS: BACLOFEN 10 MG TABLET PO (09:38)
[2025-01-09] MEDS: carvediloL 3.125 MG TABLET PO (09:38)
[2025-01-09 10:00] VITALS: BP 129/82; PULSE 87; RESP 15; TEMP 36.3; O2SAT 100
--- NOTE | 2025-01-09 10:45 | PC.NURSE ---
Assess- Patient is alert and oriented x4. BS clear in upper and lower lobes. Patient is not sob and no crackles were heard. She is on RA. Patient is a one person assist when up to use the bathroom. She ate some breakfast and is now resting. Patient up to the bathroom x1.
--- NOTE | 2025-01-09 11:02 | P.DS_ITS ---
History of Present Illness History of Present Illness Date Patient Seen: 01/09/25 Chief complaint: Flu PNA having SOB, orthostatic Narrative: Per admitting provider: From night doctor: The patient is a 79 y/o Female with h/o HTN, Tardive dyskinesia, GERD, Asthma, who lives at her home, and her grandson lives with her helping her with chores. Pt has noted for last 3 weeks, on going cough, without sputum production, was seen on 12/20/24 in ED at [facility], CTA chest done, : No Pe, was noted with mild Pneumonia, PE ruled out. Treated as out pt with Bactrim with transient symptom improvement. Has continued over last couple of weeks with dry heaves, no vomiting, productive cough ( n=mostly saliva), minimal lower quadrant abd minimal cramping, Denies diarrhea, BRBPR, no Tarry sotols, has had intermittent Nausea, no vomiting , rather spitting saliva, denies f/c, CP, Light Headedness, palpitations, SOB, or Syncope. Denies LE edema. No recent falls or trauma Notes gen weakness and decreased apatite. She was brought by family members to Ed for evaluation She had no hypoxia at rest in ED, was noted as walking using her walker, family members noted some unsteadiness, and insisted that pt be admitted to hospital. Her VSS O2 sats on RA 99% Afebrile. HR 80, RR 22 K low at 2.9 Troponin not elevated at 0.019 No Leukocytosis WBC : 6.3, HH stable plat 522 Lactate : 2.2 , repeat after 2 L NS IV, Lactate down to 1.5 BNP up at 1740 , though CXR : No acute findings CTAP : changes c/w : likely Gastritis , no Bowel obstruction Solumedrol 125 mg IV , and Duonen given , as pt was somewhat Short of breath Started on IVF NS, and IV KCl and referred to Hospitalist team for observation. S: She lives in [place], with her grandson. She has been weeks since having pneumonia. She was had a very poor appetite with little eating or drinking for the past several days. She was also had limited diarrhea and some epigastric abdominal pain. She was so weak, that she could not walk yesterday. She does feel better today. She denies any cough, or dyspnea. Her whole-body weakness is slowly improving. Discharge Providers Provider Date of admission: 01/08/25 14:54 Discharge Date: 01/09/25 Primary care physician: Michelle Hooker PA-C Consults: 01/06/25 22:13 Consult to [facility] [place] - Steward/Stewardess Deck Routine Comment: Steward/Stewardess Deck Consult needed for:: Other reason (Comment) Comment: pt states has worried about losing her home in the past year. her grandson lives with her but she states she's still concerned. Discharge provider: Sahil Carbajal DO Summary Hospital Course Discharge Diagnosis: 1. Weakness, present on admission and improved 2. Hypokalemia, present on admission and improving. 3. New decreased EF, borderline EF 45% . Present on admission and active. Troponins are not elevated. 4. Lactic acidosis, present on admission and improved. 5. Volume depletion, present on admission and improved. 6. Gastritis, present on admission and active. 7. Major depressive disorder with anxiety. Present on admission and active. Hospital Course: 79F with PMH of depression and anxiety, HTN, tardive dyskinesia who was admitted with weakness and nausea and dry heaving after recent bactrim administration. She had slow improvement in symptoms, the etiology for her presentation is not entirely known. An echocardiogram was ordered which showed new reduced EF compared to previous studies, now at 45% with some wall motion abnormalities. She had no chest pain, LE edema, or dyspnea after admission. Differentials for her presentation include viral enteritis, medication reaction to bactrim, amongst others but cardiac etiologies seem less likely. She was started on coreg after discussion with cardiology. Cardiology initially recommended transfer but unfortunately no beds were available initially, but given her stability and relative lack of symptoms was deemed appropriate for outpatient follow up. She was also started on aspirin and statin for presumed CAD at discharge. Recommend outpatient cardiology consultation after discharge, prompt follow up with PCP in the next week ideally. Time Spent with Patient Time spent: Greater than 30 minutes Exam Vital Signs (past 8 hours): - 01/09/25 06:00 01/09/25 10:00 Temperature 97.5 F L 97.4 F L Pulse Rate 95 H 87 Respiratory Rate 20 15 Blood Pressure 167/96 H 129/82 Pulse Oximetry 99 100 Oxygen Flow Rate 0 0 Fraction of Inspired Oxygen 21 SaO2/FiO2 Ratio 476 Oxygen Delivery Method Room Air Oxygen Flow Rate 0 Narrative Exam Narrative: NAD, alert and oriented. Fluent speech. Lungs are clear, normal rate and effort. Heart is regular, no murmur gallop or rub. Abdomen is soft, non distended. Extremities are free of edema. Objective Imaging Echo: Radiologist's impression: Normal LV size and wall thickness with mild global hypokinesis and an EF of 45- 50%. Some wall motion abnormality in the base and inferolateral segments. Normal valves and chamber sizes. PA systolic pressure 29. Compared to an echo of November 07 when she had relatively normal LV function. Labs 01/09/25 06:06 01/09/25 06:06 Labs: Laboratory Results - last 24 hr 01/08/25 01/09/25 13:14 06:06 WBC 4.7 RBC 4.17 Hgb 12.7 Hct 36.2 MCV 86.9 MCH 30.3 MCHC 34.9 RDW 14.6 Plt Count 425 H Neut % (Auto) 41.1 L Lymph % (Auto) 43.9 H Cannon % (Auto) 12.5 Eos % (Auto) 1.4 L Baso % (Auto) 1.1 Neut # (Auto) 1900 Lymph # (Auto) 2100 Cannon # (Auto) 600 Eos # (Auto) 100 Baso # (Auto) 100 Sodium 135 L Potassium 3.9 Chloride 108 H Carbon Dioxide 20 L BUN 7 Creatinine 0.67 Estimated GFR > 60 BUN/Creatinine Ratio 10.4 Glucose 93 Calcium 8.2 L Troponin I < 0.012 [facility] Medical History Elevated brain natriuretic peptide (BNP) level History of nuclear stress test (2008) Social History household members: family Smoking Status: Current every day smoker alcohol intake: never Discharge Plan Discharge Plan Patient Disposition: Home Provider Discharge Comment: You were admitted to the hospital with nausea which is improving. The etiology for this may have been a viral enteritis but not entirely clear. You did have some changes on an ultrasound of your heart, new medications were started for possible heart disease but it is recommended you see a road packer operator after discharge for further evaluation. I recommend starting a baby aspirin but not for another week to allow your stomach to heal. Discharge orders & Medications Prescriptions: New carvedilol 3.125 mg Tablet 3.125 mg PO BID 30 Days Qty: 60 0RF pantoprazole 20 mg tablet,delayed release (DR/EC) 20 mg PO DAILY 30 Days Qty: 30 0RF atorvastatin 40 mg tablet 40 mg PO BEDTIME 30 Days Qty: 30 0RF aspirin 81 mg tablet,delayed release (DR/EC) 81 mg PO DAILY 30 Days Qty: 30 0RF Continued dicyclomine 20 MG tablet 20 mg PO QID Qty: 120 11RF losartan 50 mg tablet 50 mg PO DAILY baclofen 10 mg tablet 10 mg PO DAILY duloxetine 20 mg capsule,delayed release(DR/EC) 40 mg PO BID ondansetron 4 mg tablet,disintegrating 2 mg PO Q6-8H PRN (Reason: Nausea) amlodipine 2 mg PO DAILY Discontinued sulfamethoxazole-trimethoprim 800-160 mg tablet 1 tab PO BID Follow up/Referrals: Michelle Hooker PA-C [Primary Care Provider] - Visit Report/Discharge Packet Instructions: Pneumonia-Adult, DI for Heart Failure, Atorvastatin, Pantoprazole, Aspirin, Carvedilol Stand Alone Forms: Patient Portal/API, Stroke Signs & Symptoms Discharge Data Primary Care Provider: Michelle Hooker Quality VTE Deep Vein Thrombosis/Pulmonary Embolism Present on Admission: No
== END 2025-01-09 13:09 | disposition home or self-care (01) ==
LOC: ED 20:13 → AC 21:06
PROVIDERS: Emergency Medicine; Hospitalist; Internal Medicine; Admitting Provider Hospitalist; Emergency Provider Emergency Medicine; PCP Physician Assistant; Referring Provider Emergency Medicine; Visit Provider Hospitalist
DX: R06.02 Shortness of breath (principal); R53.1 Weakness; E87.6 Hypokalemia; E86.9 Volume depletion, unspecified; E87.20 Acidosis, unspecified; K29.70 Gastritis, unspecified, without bleeding; F33.9 Major depressive disorder, recurrent, unspecified; F41.9 Anxiety disorder, unspecified; J45.909 Unspecified asthma, uncomplicated; I10 Essential (primary) hypertension; F17.210 Nicotine dependence, cigarettes, uncomplicated; I25.2 Old myocardial infarction
CPT/HCPCS: 36415; 71045; 74177; 80048; 80053; 83605; 83880; 84484; 85025; 85610; 93005; 93010; 93306; 94640; 96361; 96365; 96366; 96372; 96375; 99284; G0378; J1650; J2405; J2470; J2765; J2919; Q9967